=== PATIENT | female | born 1990 | race Caucasian/White ===

== ENCOUNTER 2021-06-04 02:32 | Emergency (ER) | payer OTHER, SELFPAY ==
[2021-06-04 02:33] VITALS: BP 121/79; PULSE 101; RESP 20; TEMP 36.7; O2SAT 97; BMI 28.5
[2021-06-04] MEDS: proMETHazine 25 MG/ML Syringe 12.5 MG IV (02:49)
--- NOTE | 2021-06-04 03:30 | EX.ED.DYSGE1 ---
HPI History of Present Illness Chief Complaint: General Illness Informant: patient Narrative Narrative: Patient presents with nausea vomiting diarrhea and concern for COVID. She has had some nausea vomiting diarrhea for the last approximately 24 hours. She has 2 of her 4 children at home that have COVID. She does have a slight headache. She has slight myalgias. But she has no cough dyspnea or sore throat. She has not been vaccinated. She also states that she has a history of common stomach problems with nausea vomiting diarrhea. She had some Zofran at home left over from when she was . She tried 1 of those and it did not help. She is not having abdominal pain. She has no dysuria. No flank pain. Nothing specifically makes her symptoms better. Trying to eat or drink does make the nausea worse. PFSH PFSH Medical History no medical history Home Medications ondansetron 4 mg PO Q8H PRN #10 tab 06/04/21 [Rx Last Taken Unknown] promethazine 25 mg PO Q6H PRN #14 tab 06/04/21 [Rx Last Taken Unknown] Allergy/AdvReac Type Severity Reaction Status Date / Time No Known Allergies Allergy Verified 06/04/21 02:35 Social History Smoking Status: Current every day smoker tobacco type: cigarettes ROS ROS ED Constitutional Constitutional ED: Denies chills, fever(s) or subjective Eyes Eyes: Denies blurry vision ENT ENT ED: Denies rhinorrhea or sore throat Cardiovascular Cardiovascular: Denies chest pain or palpitations Respiratory/Chest Respiratory/Chest: Denies cough, dyspnea, dyspnea on exertion or sputum Gastrointestinal Gastrointestinal: Reports diarrhea, nausea and vomiting Genitourinary Genitourinary ED: Denies dysuria or hematuria Musculoskeletal Musculoskeletal: Reports myalgias Integumentary Denies rash Neurologic Neurologic: Reports headache(s); Denies weakness Psychiatric Psychiatric: Denies depression Endocrine Endocrinology: Denies polydipsia or polyuria Allergic/Immunologic Allergic/Immunologic ED: Denies mouth swelling or urticaria EXAM Physical Exam Const Vital Signs: 06/04/21 02:33 Temperature 98.0 F Temperature Source Temporal Pulse Rate 101 H Respiratory Rate 20 H Blood Pressure 121/79 H Blood Pressure Mean 93 Pulse Ox 97 Oxygen Delivery Method Room Air Positive well nourished and well developed General Appearance ED: well developed and NAD; Negative for pallor HEENT Reports moist mucous membranes; Denies dry mucous membranes Negative for trauma or tenderness Mouth ED: No dry mucous membranes Mouth: No dry mucous membranes Eyes General Eye ED: Negative for pale conjunctiva or scleral icterus Neck no JVD Chest Wall inspection of chest normal Resp normal respiratory effort and clear to auscultation bilaterally Effort and Inspection: Negative for pain with movement Auscultation: Negative for rales, rhonchi or wheezes Cardio regular rate and regular rhythm; Negative for no murmurs GI normal to inspection, nondistended, normoactive bowel sounds, non-tender and non-distended Auscultation: normoactive bowel sounds Palpation: soft; Negative for tender, guarding or rebound tenderness present Back/Spine no CVA tenderness Extremity General Extremety ED: Negative for edema or tenderness General Extremity: Negative for edema Neuro Sensorium / Orientation: alert Psych mental status grossly normal Skin no rashes or lesions noted and no wounds General Skin Exam: Negative for jaundice or pallor MDM MDM MDM Narrative Medical decision making narrative: Patient already tried some Zofran at home. We gave her Phenergan here. Her dry heaves have stopped and she is feeling a bit better. Her COVID is positive. I did not do x-ray. She is not coughing, not short of breath, has clear lungs and is not hypoxic. I think we get her home with meds for nausea vomiting. We discussed reasons to return. Discharge Plan Triage Chief Complaint: General Illness ED Provider: Chucho Hoover Dx/Rx/DC Orders Clinical Impression: COVID-19, Nausea vomiting and diarrhea Instructions: Coronavirus Disease 2019 (COVID-19): Caring for Yourself or Others, ED Vomiting (Adult) Prescriptions: New ondansetron 4 mg tablet,disintegrating 4 mg PO Q8H PRN (Reason: nausea and vomiting) Qty: 10 RF: 0 promethazine 25 mg tablet 25 mg PO Q6H PRN (Reason: nausea and vomiting) Qty: 14 RF: 0 Primary Care Provider: Care Physician,No Primary Referrals: Paty Brantley DO [STAFF PHYSICIAN] - 10-14 Days if not better Care Physician,No Primary [Primary Care Provider] - Disposition Disposition: Home, Self Care
[2021-06-04 03:45] VITALS: BP 120/60; PULSE 87; RESP 18; O2SAT 96
== END 2021-06-04 03:46 | disposition home or self-care (01) ==
PROVIDERS: Emergency Provider Emergency Medicine; Visit Provider Emergency Medicine
DX: U07.1 COVID-19 (principal); F17.210 Nicotine dependence, cigarettes, uncomplicated
CPT/HCPCS: 87426; 96374; 99282

== ENCOUNTER 2021-10-21 18:31 | Emergency (ER) | payer OTHER, SELFPAY ==
[2021-10-21 18:32] VITALS: BP 123/92; PULSE 128; RESP 22; TEMP 36.8; O2SAT 93; BMI 28.0
--- NOTE | 2021-10-21 18:57 | EX.ED.DYSGE1 ---
HPI History of Present Illness Chief Complaint: Nausea/Vomiting Informant: patient Narrative Narrative: 30-year-old female states that last evening she developed nausea and by 030 0 hours she was experiencing vomiting. She tried to work but was unsuccessful. She states that she generally feels very poorly. She states the last time she felt like this she had COVID and that was several months ago. She denies any diarrhea or other URI symptoms. She is crying stating that she feels bad. PFSH PFSH Medical History no medical history no medical history Home Medications NK 10/21/21 [History Last Taken Unknown] promethazine 25 mg PO Q6H PRN PRN #20 tablet 10/21/21 [Rx Last Taken Unknown] Allergy/AdvReac Type Severity Reaction Status Date / Time No Known Allergies Allergy Verified 10/21/21 18:32 Surgical History no surgical history no surgical history Social History (Updated 10/21/21 @ 18:[address] Damion Matthews, DO) current gender identity: female Smoking Status: Current every day smoker tobacco type: cigarettes ROS ROS ED Constitutional Constitutional ED: Denies chills, fever(s) or weight loss Eyes Eyes: Denies change in vision or diplopia ENT ENT ED: Denies ear pain, rhinorrhea or sore throat Cardiovascular Cardiovascular: Denies chest pain, orthopnea, palpitations or racing heartbeat Respiratory/Chest Respiratory/Chest: Denies cough, dyspnea or orthopnea Gastrointestinal Gastrointestinal: Reports nausea and vomiting; Denies abdominal pain or diarrhea Genitourinary Genitourinary ED: Denies dysuria, hematuria or urinary frequency Musculoskeletal Musculoskeletal: Reports myalgias; Denies arthralgias Integumentary Denies abscess or rash Neurologic Neurologic: Denies headache(s) or weakness Psychiatric Psychiatric: Denies anxiety, depression, suicidal ideation or suicidal thoughts Endocrine Endocrinology: Denies polydipsia, polyphagia or polyuria Allergic/Immunologic Allergic/Immunologic ED: Denies mouth swelling, tongue swelling or urticaria EXAM Physical Exam Const Vital Signs: 10/21/21 18:32 Temperature 98.2 F Temperature Source Temporal Pulse Rate 128 H Respiratory Rate 22 H Blood Pressure 123/92 H Blood Pressure Mean 102 Pulse Ox 93 Oxygen Delivery Method Room Air Positive well nourished and well developed General Appearance ED: well developed HEENT Reports normocephalic, head/scalp atraumatic, TM's clear and moist mucous membranes Negative for trauma Tympanic Membrane ED: Yes TM's clear Eyes PERRL and EOMs intact bilaterally Neck no lymphadenopathy, supple and no JVD Resp normal respiratory effort and clear to auscultation bilaterally Cardio regular rate and no murmurs Rate: tachycardic GI normal to inspection, nondistended, normoactive bowel sounds and non-tender Palpation: soft Back/Spine no CVA tenderness and normal ROM Extremity normal to inspection General Extremety ED: Negative for edema General Extremity: Negative for edema Neuro oriented x3 and CN's II-XII intact bilaterally Sensorium / Orientation: alert Motor Exam: strength 5/5 throughout Psych Mood & Affect: tearful; Negative for depressed Skin no rashes or lesions noted and no wounds MDM MDM MDM Narrative Medical decision making narrative: Basic blood work was normal. Not . Lipase 133. COVID and influenza swabs are negative. Patient received Zofran and IV fluids. She is feeling better. I will write for Phenergan on her request. Return if worsening or concerns Lab Data Attestation: I reviewed the patient's lab results. Labs: Laboratory Results - last 24 hr 10/21/21 10/21/21 10/21/21 19:00 19:00 19:00 WBC 8.7 RBC 4.63 Hgb 12.8 Hct 41.8 MCV 90.3 MCH 27.6 MCHC 30.6 L RDW Std Deviation 42.6 RDW Coeff of [place] 12.9 Plt Count 267 MPV 10.9 Immature Gran % (Auto) 0.300 Neut % (Auto) 78.5 H Lymph % (Auto) 16.1 L [place] % (Auto) 3.9 Eos % (Auto) 0.9 Baso % (Auto) 0.3 Absolute Neuts (auto) 6.8 Absolute Lymphs (auto) 1.40 Nucleated RBC % 0 Sodium 139 Potassium 3.6 Chloride 110 H Carbon Dioxide 22.0 Anion Gap 7 BUN 8 Creatinine 0.71 Estim Creat Clear Calc 97.58 Est GFR (MDRD) Af Amer 125 Est GFR (MDRD) Non-Af 104 BUN/Creatinine Ratio 11.3 Glucose 97 Calcium 8.8 Total Bilirubin 0.40 AST 18 ALT 25 Alkaline Phosphatase 76 Total Protein 7.9 Albumin 4.1 Globulin 3.8 Albumin/Globulin Ratio 1.1 Lipase 133 Serum , Qual NEGATIVE Discharge Plan Triage Chief Complaint: Nausea/Vomiting ED Provider: Damion Matthews Dx/Rx/DC Orders Clinical Impression: Vomiting Instructions: ED Vomiting (Adult) Prescriptions: New promethazine [promethazine] 25 MG tablet 25 mg PO Q6H PRN PRN (Reason: Nausea) Qty: 20 RF: 0 No Action NK RF: 0 Primary Care Provider: Care Physician,No Primary Referrals: Kateryna Borrego MD [STAFF PHYSICIAN] - 1-2 Days if not improving Care Physician,No Primary [Primary Care Provider] - Disposition Disposition: Home, Self Care
[2021-10-21] MEDS: 0.9% Normal Saline 1,000 ML 1000 ML IV (19:05)
[2021-10-21] MEDS: Ondansetron 4 MG/2 ML Vial IV (19:05)
[2021-10-21 19:17] LABS: Absolute Neutrophil Count 6.8 X10^3/uL (2.0-7.7); Basophil# 0.03 X10^3/uL; Basophil% 0.3 % (0-1); Eosinophil# 0.08 X10^3/uL; Eosinophils% 0.9 % (0-5); Hematocrit 41.8 % (37-47); Hemoglobin 12.8 g/dL (12.0-15.0); Lymphocyte % 16.1 % (19-41); Mean Corp Hgb Conc 30.6 g/dL (32-36); Mean Corpuscular Hgb 27.6 pg (27.0-32.0); Mean Corpuscular Volume 90.3 fL (81-99); Mean Platelet Vol. 10.9 fl (6.2-12.0); Monocyte# 0.34 X10^3/uL; Monocyte% 3.9 % (0-10); NRBC Flagged by Analyzer 0 % (0-5); Neutrophil # 6.81 X10^3/uL (2.7-7.7); Neutrophil % 78.5 % (47-70); Platelet Count 267 K/mm3 (150-450); RBC Distribution Width CV 12.9 % (11.6-14.6); RBC Distribution Width SD 42.6 fl (35.1-43.9); Red Blood Count 4.63 M/mm3 (4.2-5.4); White Blood Count 8.7 K/mm3 (4.4-11.0)
[2021-10-21 19:32] LABS: Internal QC Validated? YES +Cl - CLEAR BKGD; Pregnancy, Serum, hCG Quali. NEGATIVE Negative
[2021-10-21 20:04] LABS: ALB/GLOB Ratio 1.1 RATIO (0.9-2.4); AST(SGOT) 18 U/L (15-37); Alanine Aminotransfer ALT/SGPT 25 U/L (13-56); Albumin, Serum 4.1 g/dL (3.2-5.0); Alkaline Phosphatase 76 U/L (45-117); Anion Gap 7 (5-15); BUN 8 mg/dL (7-18); BUN/Creat Ratio 11.3 RATIO (10-20); Calcium,Total 8.8 mg/dL (8.5-10.1); Chloride 110 mmol/L (98-107); Creatinine, Serum 0.71 mg/dL (0.55-1.02); EST Glomerular Filtration Rate 104 mL/min (>60); Est Glom Filt Rate - Afr Amer 125 mL/min (>60); Estimated Creatinine Clearance 97.58 ml/min; Globulin 3.8 g/dL (2.2-4.2); Glucose 97 mg/dL (74-106); Lipase 133 U/L (73-393); Potassium 3.6 mmol/L (3.5-5.1); Protein, Total 7.9 g/dL (6.4-8.2); Sodium Level 139 mmol/L (136-145)
== END 2021-10-21 21:09 | disposition home or self-care (01) ==
PROVIDERS: Emergency Provider Emergency Medicine; Visit Provider Emergency Medicine
DX: R11.2 Nausea with vomiting, unspecified (principal); Z20.822 Contact with and (suspected) exposure to COVID-19; F17.210 Nicotine dependence, cigarettes, uncomplicated
CPT/HCPCS: 80053; 83690; 84703; 85025; 87428; 96361; 96374; 99282; J7030; A4216; J2405

== ENCOUNTER 2022-05-17 06:37 | Emergency (ER) | payer OTHER, SELFPAY ==
[2022-05-17 06:39] VITALS: BP 136/80; PULSE 118; RESP 20; TEMP 36.4; O2SAT 98; BMI 24.7
--- NOTE | 2022-05-17 07:13 | EDS_ITS ---
HPI History of Present Illness Chief Complaint: Nausea/Vomiting Informant: patient Onset/Context/Timing Onset: Days (2) Context: Gradual Onset Timing: Continuous Quality: Nausea Location: Abdominal Worsened by: Food Relieved by: Nothing Narrative Narrative: Patient presents with nausea and vomiting that has been constant for the past 2 days. Patient states she is unable to keep anything down. Patient denies any hematemesis or coffee-ground emesis. Patient admits to some diarrhea. Patient denies any melena or hematochezia. Patient states her nausea and vomiting is worse whenever she tries to eat anything. Patient denies any abdominal pain. Patient denies any urinary complaints. Patient states several family members have been positive for influenza recently. PFSH PFSH Medical History no medical history no medical history Home Medications promethazine 25 mg rectal suppository (Promethegan) 25 mg RECTAL Q6H PRN PRN Nausea ##6 05/17/22 [Rx Last Taken Unknown] Allergy/AdvReac Type Severity Reaction Status Date / Time No Known Allergies Allergy Verified 05/17/22 06:38 Surgical History no surgical history no surgical history Social History Smoking Status: Current every day smoker tobacco type: cigarettes ROS ROS ED Constitutional Constitutional ED: Denies chills or fever(s) Eyes Eyes: Denies blurry vision or change in vision ENT ENT ED: Reports sore throat; Denies rhinorrhea Cardiovascular Cardiovascular: Denies chest pain or palpitations Respiratory/Chest Respiratory/Chest: Reports cough; Denies dyspnea Gastrointestinal Gastrointestinal: Reports diarrhea, nausea and vomiting Genitourinary Genitourinary ED: Denies dysuria or hematuria Musculoskeletal Musculoskeletal: Denies back pain or neck pain Integumentary Denies abscess or rash Neurologic Neurologic: Reports headache(s); Denies weakness Allergic/Immunologic Allergic/Immunologic ED: Denies mouth swelling or urticaria EXAM Physical Exam Const Vital Signs: 05/17/22 06:39 Temperature 97.6 F L Temperature Source Temporal Pulse Rate 118 H Respiratory Rate 20 H Blood Pressure 136/80 H Blood Pressure Mean 98 Pulse Ox 98 Oxygen Delivery Method Room Air Positive well nourished and well developed General Appearance ED: well developed and NAD HEENT Reports moist mucous membranes Neck supple and no JVD Resp normal respiratory effort and clear to auscultation bilaterally Cardio regular rate, regular rhythm and no murmurs GI normal to inspection, nondistended, normoactive bowel sounds and non-tender Palpation: soft Extremity normal to inspection General Extremety ED: Negative for edema or tenderness General Extremity: Negative for edema Neuro oriented x3, CN's II-XII intact bilaterally and no sensory deficits noted Sensorium / Orientation: alert Motor Exam: strength 5/5 throughout Psych mental status grossly normal Skin no rashes or lesions noted MDM MDM MDM Narrative Medical decision making narrative: Patient was given IV fluids and Zofran. CBC was within normal limits. Comprehensive metabolic profile was within normal limits. Lipase was normal. Serum hCG was negative. COVID-19 rapid antigen was obtained and was negative. Influenza A and influenza B rapid antigens were obtained and were negative. Urinalysis shows leukocyte esterases of 100. There were 0-5 white blood cells and 5-10 epithelial cells. Patient was given a prescription for Phenergan suppositories. Patient was instructed to start with small amounts of liquids and advance her diet as tolerated. Patient was instructed to follow-up with a primary care physician in 5 to 7 days. Patient understood and was agreeable with the plan. All questions were answered. Lab Data Attestation: I reviewed the patient's lab results. Labs: Laboratory Results - last 24 hr 05/17/22 05/17/22 05/17/22 07:27 07:27 07:27 WBC 7.8 RBC 4.27 Hgb 12.5 Hct 38.5 MCV 90.2 MCH 29.3 MCHC 32.5 RDW Std Deviation 42.8 RDW Coeff of [place] 12.9 Plt Count 219 MPV 10.6 Immature Gran % (Auto) 0.400 Neut % (Auto) 42.8 L Lymph % (Auto) 48.8 H [place] % (Auto) 5.1 Eos % (Auto) 2.6 Baso % (Auto) 0.3 Absolute Neuts (auto) 3.3 Absolute Lymphs (auto) 3.79 Nucleated RBC % 0 Sodium 141 Potassium 3.8 Chloride 111 H Carbon Dioxide 25.0 Anion Gap 5 BUN 10 Creatinine 0.75 Estim Creat Clear Calc 91.55 Est GFR (MDRD) Af Amer 117 Est GFR (MDRD) Non-Af 97 BUN/Creatinine Ratio 13.4 Glucose 109 H Calcium 8.6 Total Bilirubin 0.30 AST 14 L ALT 21 Alkaline Phosphatase 58 Total Protein 7.3 Albumin 3.7 Globulin 3.6 Albumin/Globulin Ratio 1.0 Lipase 123 HCG, Quant < 1 Urine Color Urine Clarity Urine pH Ur Specific [place] Urine Protein Urine Glucose (UA) Urine Ketones Urine Occult Blood Urine Nitrite Urine Bilirubin Urine Urobilinogen Ur Leukocyte Esterase Urine RBC Urine WBC Ur Squamous Epith Cells Urine Bacteria Urine Mucus 05/17/22 07:35 WBC RBC Hgb Hct MCV MCH MCHC RDW Std Deviation RDW Coeff of [place] Plt Count MPV Immature Gran % (Auto) Neut % (Auto) Lymph % (Auto) [place] % (Auto) Eos % (Auto) Baso % (Auto) Absolute Neuts (auto) Absolute Lymphs (auto) Nucleated RBC % Sodium Potassium Chloride Carbon Dioxide Anion Gap BUN Creatinine Estim Creat Clear Calc Est GFR (MDRD) Af Amer Est GFR (MDRD) Non-Af BUN/Creatinine Ratio Glucose Calcium Total Bilirubin AST ALT Alkaline Phosphatase Total Protein Albumin Globulin Albumin/Globulin Ratio Lipase HCG, Quant Urine Color Yellow Urine Clarity Clear Urine pH 6.0 Ur Specific [place] 1.020 Urine Protein 15 H Urine Glucose (UA) Normal Urine Ketones Negative Urine Occult Blood Negative Urine Nitrite Negative Urine Bilirubin Negative Urine Urobilinogen Normal Ur Leukocyte Esterase 100 H Urine RBC 0 SEEN Urine WBC 0-5 SEEN Ur Squamous Epith Cells 5-10 SEEN Urine Bacteria 1+ Urine Mucus 0 SEEN Discharge Plan Triage Chief Complaint: Nausea/Vomiting ED Provider: Sacha Regalado Dx/Rx/DC Orders Clinical Impression: Nausea vomiting and diarrhea, Tobacco use Instructions: ED Gastroenteritis, Viral (Adult), ED Vomiting and Diarrhea ... Prescriptions: New promethazine [Promethegan] 25 mg suppository 25 mg RECTAL Q6H PRN PRN (Reason: Nausea) Qty: 6 0RF Primary Care Provider: Care Physician,No Primary Referrals: Geronimo Malave MD [Med Staff - Active Staff] - 5-7 Days Care Physician,No Primary [Primary Care Provider] - Disposition Disposition: Home, Self Care
[2022-05-17] MEDS: Ondansetron 4 MG/2 ML Vial IV (07:35)
[2022-05-17] MEDS: 0.9% Normal Saline 1,000 ML 1000 ML IV (07:35)
[2022-05-17 07:36] LABS: Absolute Lymphocyte Count 3.79 X10^3/uL (0.83-4.51); Absolute Neutrophil Count 3.3 X10^3/uL (2.0-7.7); Basophil# 0.02 X10^3/uL; Basophil% 0.3 % (0-1); Eosinophils% 2.6 % (0-5); Hematocrit 38.5 % (37-47); Hemoglobin 12.5 g/dL (12.0-15.0); Lymphocyte # 3.79 X10^3/ul (0.83-4.51); Lymphocyte % 48.8 % (19-41); Mean Corp Hgb Conc 32.5 g/dL (32-36); Mean Corpuscular Hgb 29.3 pg (27.0-32.0); Mean Corpuscular Volume 90.2 fL (81-99); Mean Platelet Vol. 10.6 fl (6.2-12.0); Monocyte% 5.1 % (0-10); NRBC Flagged by Analyzer 0 % (0-5); Neutrophil # 3.33 X10^3/uL (2.7-7.7); Neutrophil % 42.8 % (47-70); Platelet Count 219 K/mm3 (150-450); RBC Distribution Width CV 12.9 % (11.6-14.6); RBC Distribution Width SD 42.8 fl (35.1-43.9); Red Blood Count 4.27 M/mm3 (4.2-5.4); White Blood Count 7.8 K/mm3 (4.4-11.0)
[2022-05-17 07:41] LABS: Mucous, Urine 0 SEEN /hpf (<or=2+); Red Blood Cells-Urine 0 SEEN /hpf (0-5)
[2022-05-17 07:55] LABS: AST(SGOT) 14 U/L (15-37); Alanine Aminotransfer ALT/SGPT 21 U/L (13-56); Albumin, Serum 3.7 g/dL (3.2-5.0); Alkaline Phosphatase 58 U/L (45-117); Anion Gap 5 (5-15); BUN 10 mg/dL (7-18); BUN/Creat Ratio 13.4 RATIO (10-20); Calcium,Total 8.6 mg/dL (8.5-10.1); Chloride 111 mmol/L (98-107); Creatinine, Serum 0.75 mg/dL (0.55-1.02); EST Glomerular Filtration Rate 97 mL/min (>60); Est Glom Filt Rate - Afr Amer 117 mL/min (>60); Estimated Creatinine Clearance 91.55 ml/min; Globulin 3.6 g/dL (2.2-4.2); Glucose 109 mg/dL (74-106); Lipase 123 U/L (73-393); Potassium 3.8 mmol/L (3.5-5.1); Protein, Total 7.3 g/dL (6.4-8.2); Sodium Level 141 mmol/L (136-145)
[2022-05-17 07:59] LABS: Color, Urine Yellow (Yellow); Glucose, Dipstick Normal (Normal); Ketone-Dipstick Negative (Negative); Leukocyte Esterase-Dipstick 100 /ul (Negative); Nitrite-Dipstick Negative (Negative); Occult Blood-Urine Negative /ul (Negative); Protein-Dipstick 15 mg/dl (Negative); Urine Bilirubin Dipstick Negative (Negative); Urine Clarity Clear (Clear); Urine Urobilinogen Normal (Normal)
[2022-05-17 08:08] LABS: hCG Titer Quant., Serum < 1 mIU/mL (1-3)
[2022-05-17 08:26] LABS: Bacteria 1+ /hpf (None Seen); Squamous Epithelial Cells - UA 5-10 SEEN /hpf (5-10); White Blood Cells 0-5 SEEN /hpf (0-5)
== END 2022-05-17 08:39 | disposition home or self-care (01) ==
PROVIDERS: Emergency Provider Emergency Medicine; Visit Provider Emergency Medicine
DX: R11.2 Nausea with vomiting, unspecified (principal); F17.210 Nicotine dependence, cigarettes, uncomplicated; R19.7 Diarrhea, unspecified; R51.9 Headache, unspecified; J02.9 Acute pharyngitis, unspecified; Z20.822 Contact with and (suspected) exposure to COVID-19
CPT/HCPCS: 80053; 81001; 83690; 84702; 85025; 87428; 96361; 96374; 99282; J7030; A4216; J2405

== ENCOUNTER → 2022-11-24 | Outpatient (CLI) | payer OTHER, SELFPAY ==
--- NOTE | 2022-11-24 | FLU_PTH ---
PATIENT: JACKSON RAMEY LOC: [facility] U#:[id number] AGE/SX: 32/F ROOM: RE11/24/[address]: Dr. Padmaja Jurado MD : 1990 BED: DIS: 11/24/2022 SPEC #: [id number] RECD: 11/24/22 16:58 STATUS: RAVI REVivian #: [id number] ZACHARY: 11/24/22 00:[address]: Padmaja Jurado DEPT: CYTOLOGY RECD BY: Nathan Barcenas ENTERED: 11/25/22 08:31 SP TYPE: Fluid OTHR DR: No Primary Care Phys Tissues: A - Thyroid gland, NOS B - Thyroid gland, NOS Procedures: Special Stain Group II Surgery Specimen Level IV Cytospin Fluid HEADER OPERATION: Fine needle aspiration, right thyroid PRE-OP DIAGNOSIS: Abnormal thyroid ultrasound TISSUE SUBMITTED: A. FNA right thyroid fluid, B. FNA right thyroid slides DIAGNOSIS CYTOLOGY A. FNA right thyroid fluid (cytospin and cell block): Negative for malignant cells. See comment. B. FNA right thyroid (smears): Benign follicular/colloid nodule. [place] category II Adequate for evaluation. SJ: 11/26/2022 COMMENT A. The specimen consists of a few clusters of benign follicular cells and numerous macrophages. The findings may represent cystic changes in the lesion. Correlation with clinical, radiologic findings and appropriate follow up are necessary. CYTOLOGY STUDY Slides are reviewed. CYTOLOGY GROSS A. Received is 30 ml of red cloudy fluid labeled with the patient's name and and designated per the requisition as FNA right thyroid. Submitted for cytology preparation including cell block. B. Received are 4 smears labeled with the patient's name and designated per the requisition as FNA right thyroid. Submitted for staining. /CC: 11/25/22 TC: 5 CPT: 71572, 69290, 13606
== END | disposition home or self-care (01) ==
PROVIDERS: Referring Provider Surgery; Visit Provider Surgery
DX: R94.6 Abnormal results of thyroid function studies (principal)
CPT/HCPCS: 88108; 88305; 88313

== ENCOUNTER 2023-01-06 10:05 | Emergency (ER) | payer OTHER, SELFPAY ==
[2023-01-06 10:06] VITALS: BP 108/69; PULSE 108; RESP 18; TEMP 36.1; O2SAT 100; BMI 24.4
--- NOTE | 2023-01-06 10:21 | ED.VIS.GI ---
HPI HPI - GI History of Present Illness Chief Complaint: Nausea/Vomiting Informant: patient Nausea/Vomiting/Emesis GI Symptom: Positive for Nausea and Vomiting Onset: Today and Yesterday Severity: Moderate Diarrhea/Melena/Hematochezia GI Symptom: Negative for Diarrhea, Melena or Hematochezia Associated Symptoms Associated Symptoms: Negative for Dysuria, Frequency, Hematuria or Urgency Narrative Narrative: 32-year-old female without any significant past medical history. Her 2-year-old started with nausea vomiting diarrhea yesterday and she started with nausea and vomiting last night around 11 PM. She denies any diarrhea. No melena. No hematemesis. No fever. Denies any abdominal pain. Prior similar symptoms: Yes Recent Illness/Hospitalization: No PFSH PFSH Medical History no medical history no medical history Home Medications promethazine 25 mg rectal suppository (Promethegan) 25 mg RECTAL Q6H PRN PRN Nausea ##6 05/17/22 [Rx Last Taken Unknown] ondansetron 4 mg disintegrating tablet 4 mg PO Q6H PRN nausea and vomiting #10 tabs 01/06/23 [Rx Last Taken Unknown] Allergy/AdvReac Type Severity Reaction Status Date / Time No Known Allergies Allergy Verified 01/06/23 10:07 Surgical History no surgical history no surgical history Social History Smoking Status: Current every day smoker tobacco type: cigarettes ROS ROS ED ROS Narrative Nausea and vomiting today. No diarrhea. Review of Systems ROS Unobtainable: Denies due to encephalopathy Constitutional Constitutional ED: Denies chills or fever(s) ENT ENT ED: Denies ear pain Cardiovascular Cardiovascular: Denies chest pain Respiratory/Chest Respiratory/Chest: Denies cough or dyspnea Gastrointestinal Gastrointestinal: Reports nausea and vomiting; Denies abdominal pain, constipation, diarrhea or melena Genitourinary Genitourinary ED: Denies dysuria or hematuria Musculoskeletal Musculoskeletal: Denies arthralgias Integumentary Denies abscess Neurologic Neurologic: Denies headache(s) Psychiatric Psychiatric: Denies anxiety Endocrine Endocrinology: Denies polydipsia Hematologic/Lymphatic Hematologic/Lymphatic: Denies easy bleeding Allergic/Immunologic Allergic/Immunologic ED: Denies mouth swelling EXAM Physical Exam Narrative Exam Narrative: 32-year-old no acute distress. Vital signs stable afebrile. H EENT exam mildly dry mucous membranes. Posterior pharynx unremarkable. Neck nontender. No lymphadenopathy. Lungs clear to auscultation bilaterally. Heart tachycardic rate about 110 no murmur. Chest wall nontender. Abdomen soft nontender. Nondistended. Normal bowel sounds. No peritoneal signs. No right upper or lower quadrant tenderness. No hernia or mass. No obstruction. Moving all 4 extremities. Calves are nontender. Neurologically awake and alert. No focal motor deficits. Skin unremarkable. Back nontender. Const Vital Signs: 01/06/23 10:06 Temperature 96.9 F L Temperature Source Temporal Pulse Rate 108 H Respiratory Rate 18 Blood Pressure 108/69 Blood Pressure Mean 82 Pulse Ox 100 Oxygen Delivery Method Room Air Positive well nourished and well developed; Negative for obese, cachectic, contractures or unkempt General Appearance ED: well developed and NAD; Negative for unkempt, cachectic or contractures Nutritional Appearance: Negative for cachectic or obese HEENT Reports dry mucous membranes; Denies moist mucous membranes normocephalic and atraumatic; Negative for trauma or tenderness Mouth ED: Yes dry mucous membranes Mouth: dry mucous membranes Eyes PERRL and EOMs intact bilaterally General Eye ED: Negative for pale conjunctiva or scleral icterus Neck no lymphadenopathy, supple and no JVD General: Negative for tenderness Carotids: Negative for other Lymph Lymphatic: Negative for other Resp normal respiratory effort and clear to auscultation bilaterally Effort and Inspection: Negative for respiratory distress Auscultation: Negative for rales, rhonchi or wheezes Cardio regular rhythm, S1 normal heart sound, S2 normal heart sound and no murmurs; Negative for regular rate Rate: tachycardic GI non-tender, non-distended and no masses Inspection: Negative for abdominal distention Auscultation: normoactive bowel sounds Palpation: soft; Negative for tender or guarding Back/Spine no CVA tenderness General Back: Negative for CVA tenderness Cervical Spine: Negative for cervical spine tenderness Thoracic Spine / Upper Back: Negative for thoracic spinal tenderness Lumbar Spine / Lower Back: Negative for lumbar spinal tenderness Coccyx: Negative for other Extremity full ROM General Extremety ED: Negative for edema or tenderness General Extremity: Negative for edema Neuro CN's II-XII intact bilaterally and moves all extremities Sensorium / Orientation: alert, oriented to person, oriented to place and oriented to time; Negative for orientation impaired, confused, lethargic or stuporous Motor Exam: strength 5/5 throughout Psych mental status grossly normal and thought process normal Appearance: Negative for unkempt Attitude: No agitated Mood & Affect: Negative for depressed, anxious or tearful Skin no wounds General Skin Exam: Negative for jaundice Lesions: no lesions Rashes: no rashes Trauma: Negative for abrasion Nails: Negative for discolored MDM MDM MDM Narrative Medical decision making narrative: 32-year-old female with nausea vomiting. Son has nausea vomiting diarrhea. I suspect this is a viral gastroenteritis. Abdomen is completely nontender and benign. She will be treated with IV fluids. IV Zofran. P.o. fluid challenge. If she is normal she be discharged home with Zofran. Clinically she is mildly dehydrated. Repeat exam at 11:00 patient is doing well. Still nauseated will be given a second dose of IV Zofran. She has had about half of her liter bag so far. Repeat exam patient clinically looks well at 12:30 PM. Nausea is resolved. She feels much better. She was able to tolerate p.o. fluids. She will be discharged home. Treated as a viral gastroenteritis. Fluids. Rest. Zofran as needed. She is comfortable with the plan. Discharge Plan Triage Chief Complaint: Nausea/Vomiting ED Provider: Augustus Sahni Dx/Rx/DC Orders Clinical Impression: Acute dehydration, Viral syndrome, Nausea & vomiting Instructions: ED Dehydration (Adult), ED Viral Syndrome (Adult) Prescriptions: New ondansetron 4 mg tablet,disintegrating 4 mg PO Q6H PRN (Reason: nausea and vomiting) Qty: 10 0RF No Action promethazine [Promethegan] 25 mg suppository 25 mg RECTAL Q6H PRN PRN (Reason: Nausea) Qty: 6 0RF Primary Care Provider: Care Physician,No Primary Referrals: Juan Aguiar MD [Med Staff - Flight [employer] Operator] - As Needed Care Physician,No Primary [Primary Care Provider] - Activity Restrictions/Additional Instructions: Plenty of fluids and rest. Increase diet slowly as tolerated Zofran as needed for nausea. You may let it dissolve in your tongue or swallow it. Follow-up with your doctor if not improving or return if feeling worse or unable to keep fluids down. Disposition Disposition: Home, Self Care
[2023-01-06] MEDS: Ondansetron 4 MG/2 ML Vial IV ×2 (10:27→11:11)
[2023-01-06] MEDS: 0.9% Normal Saline 1,000 ML 1000 ML IV (10:27)
--- NOTE | 2023-01-06 11:05 | CM.ED ---
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 Patient was lying on hospital bed and agreeable to speak with SW. SW inquired about patient's insurance and current PCP. Patient verified insurance and reports havinga PCP at [facility] but is unable to recall their name. Patient declined a list of local PCPs in network with patient's insurance and accepting new patients. Patient voiced no other needs at this time. SW remains available if needs arise. Masha Xiong MECHANICAL DRAFTER, JEANINE
== END 2023-01-06 12:36 | disposition home or self-care (01) ==
LOC: ED 10:49
PROVIDERS: Emergency Provider Emergency Medicine; Visit Provider Emergency Medicine
DX: E86.0 Dehydration (principal); B34.9 Viral infection, unspecified; R11.2 Nausea with vomiting, unspecified; F17.210 Nicotine dependence, cigarettes, uncomplicated
CPT/HCPCS: 96361; 96374; 96376; 99282; J7030; A4216; J2405

== ENCOUNTER 2023-01-21 17:25 | Emergency (ER) | payer OTHER, SELFPAY ==
[2023-01-21 17:26] VITALS: BP 113/71; PULSE 83; RESP 17; TEMP 36.9; O2SAT 100; BMI 24.1
[2023-01-21 18:21] LABS: Absolute Lymphocyte Count 2.43 X10^3/uL (0.83-4.51); Absolute Neutrophil Count 7.9 X10^3/uL (2.0-7.7); Basophil# 0.03 X10^3/uL; Basophil% 0.3 % (0-1); Eosinophil# 0.02 X10^3/uL; Eosinophils% 0.2 % (0-5); Hematocrit 42.6 % (37-47); Hemoglobin 13.4 g/dL (12.0-15.0); Lymphocyte # 2.43 X10^3/ul (0.83-4.51); Lymphocyte % 22.2 % (19-41); Mean Corp Hgb Conc 31.5 g/dL (32-36); Mean Corpuscular Hgb 28.6 pg (27.0-32.0); Mean Corpuscular Volume 90.8 fL (81-99); Mean Platelet Vol. 10.6 fl (6.2-12.0); Monocyte# 0.51 X10^3/uL; Monocyte% 4.7 % (0-10); NRBC Flagged by Analyzer 0 % (0-5); Neutrophil # 7.88 X10^3/uL (2.7-7.7); Neutrophil % 72.1 % (47-70); Platelet Count 271 K/mm3 (150-450); RBC Distribution Width CV 12.7 % (11.6-14.6); RBC Distribution Width SD 41.9 fl (35.1-43.9); Red Blood Count 4.69 M/mm3 (4.2-5.4); White Blood Count 10.9 K/mm3 (4.4-11.0)
[2023-01-21 18:25] LABS: Internal QC Validated? YES +Cl - CLEAR BKGD; Pregnancy, Serum, hCG Quali. NEGATIVE Negative
[2023-01-21 18:31] LABS: Anion Gap 7 (5-15); BUN 7 mg/dL (7-18); BUN/Creat Ratio 8.5 RATIO (10-20); Calcium,Total 9.1 mg/dL (8.5-10.1); Chloride 108 mmol/L (98-107); Creatinine, Serum 0.82 mg/dL (0.55-1.02); EST Glomerular Filtration Rate 87 mL/min (>60); Est Glom Filt Rate - Afr Amer 105 mL/min (>60); Estimated Creatinine Clearance 82.98 ml/min; Glucose 100 mg/dL (74-106); Potassium 3.6 mmol/L (3.5-5.1); Sodium Level 138 mmol/L (136-145)
[2023-01-21 18:57] LABS: Bacteria 0 SEEN /hpf (None Seen)
[2023-01-21 18:58] LABS: Color, Urine Yellow (Yellow); Glucose, Dipstick Normal (Normal); Ketone-Dipstick 50 mg/dl (Negative); Leukocyte Esterase-Dipstick 25 /ul (Negative); Nitrite-Dipstick Negative (Negative); Occult Blood-Urine 10 /ul (Negative); Protein-Dipstick 30 mg/dl (Negative); Urine Clarity Clear (Clear); Urine Urobilinogen 1 mg/dl (Normal)
[2023-01-21 19:02] LABS: Urine Bilirubin Dipstick 1 mg/dL (Negative)
[2023-01-21 19:25] LABS: Mucous, Urine 3+ /hpf (<or=2+); Red Blood Cells-Urine 0-5 SEEN /hpf (0-5); Squamous Epithelial Cells - UA 0-5 SEEN /hpf (5-10); White Blood Cells 0-5 SEEN /hpf (0-5)
--- NOTE | 2023-01-21 19:38 | ED.VIS.GI ---
HPI HPI - GI History of Present Illness Chief Complaint: Abd Pain Informant: patient Abdominal Pain/Flank Pain Onset: Days Context: Gradual Onset Timing: Continuous Quality: Dull Location: Epigastric, RUQ and LUQ Worsened by: Nothing Relieved by: Nothing Nausea/Vomiting/Emesis GI Symptom: Positive for Nausea and Vomiting Quality: Positive for Nonbilious; Negative for Blood streaks, Coffee ground or Hematemesis Diarrhea/Melena/Hematochezia GI Symptom: Positive for Diarrhea; Negative for Melena or Hematochezia Associated Symptoms Associated Symptoms: Negative for Dysuria, Frequency or Hematuria Narrative Narrative: Patient presents with nausea and vomiting and diarrhea for the past few days. Patient states she has been unable to keep anything down. Patient denies any hematemesis or coffee-ground emesis. Patient denies any melena or hematochezia. Patient states her diarrhea is watery. Patient admits to some upper abdominal pain. Patient describes it as dull. Patient states it is worse with vomiting. Patient states nothing makes it better. Patient states she saw her primary care physician earlier today who prescribed her Zofran. Patient states this has not been helping. PFSH PFSH Medical History no medical history no medical history Home Medications ondansetron 4 mg disintegrating tablet 4 mg PO Q6H PRN nausea and vomiting #10 tabs 01/06/23 [Rx Last Taken Unknown] promethazine 25 mg rectal suppository (Promethegan) 25 mg RECTAL Q6H PRN PRN Nausea ##6 01/21/23 [Rx Last Taken Unknown] Allergy/AdvReac Type Severity Reaction Status Date / Time No Known Allergies Allergy Verified 01/21/23 17:26 Surgical History (Updated 01/21/23 @ 19:[address] Sacha Regalado DO) History of thyroid surgery Social History Smoking Status: Current every day smoker tobacco type: cigarettes ROS ROS ED Constitutional Constitutional ED: Reports chills, fever(s) and subjective Eyes Eyes: Denies blurry vision or change in vision ENT ENT ED: Denies rhinorrhea or sore throat Cardiovascular Cardiovascular: Denies chest pain or palpitations Respiratory/Chest Respiratory/Chest: Reports dyspnea; Denies cough Gastrointestinal Gastrointestinal: Reports abdominal pain, diarrhea, nausea and vomiting Genitourinary Genitourinary ED: Denies dysuria or hematuria Musculoskeletal Musculoskeletal: Reports back pain; Denies neck pain Integumentary Denies abscess or rash Neurologic Neurologic: Reports headache(s); Denies weakness Allergic/Immunologic Allergic/Immunologic ED: Denies mouth swelling or urticaria EXAM Physical Exam Const Vital Signs: 01/21/23 17:26 01/21/23 20:00 Temperature 98.4 F Temperature Source Temporal Pulse Rate 83 Respiratory Rate 17 Blood Pressure 113/71 119/68 Blood Pressure Mean 85 84 Pulse Ox 100 97 Oxygen Delivery Method Room Air Positive well nourished and well developed General Appearance ED: well developed and NAD HEENT Reports moist mucous membranes Neck supple and no JVD Resp normal respiratory effort and clear to auscultation bilaterally Cardio regular rate, regular rhythm and no murmurs GI normal to inspection, nondistended, normoactive bowel sounds Palpation: soft and tender epigastric, LUQ and RUQ; Negative for guarding or rebound tenderness present Extremity normal to inspection General Extremety ED: Negative for edema or tenderness General Extremity: Negative for edema Neuro oriented x3, CN's II-XII intact bilaterally and no sensory deficits noted Sensorium / Orientation: alert Motor Exam: strength 5/5 throughout Psych mental status grossly normal Skin no rashes or lesions noted MDM MDM MDM Narrative Medical decision making narrative: Differential diagnosis includes gastroenteritis, pancreatitis, gastroesophageal reflux disease, gastric ulcer, duodenal ulcer, bowel obstruction, perforation, and ectopic . CBC will be obtained to assess for leukocytosis and anemia. Basic metabolic profile will be obtained to assess for electrolyte abnormality and renal function. Liver profile will be obtained to assess for hepatic function. Lipase will be obtained to assess for pancreatitis. Serum hCG will be obtained to assess for . Urinalysis will be obtained to assess for urinary tract infection. Lab Data Attestation: I reviewed the patient's lab results. Lab results narrative: CBC was reviewed and was within normal limits. Basic metabolic profile was reviewed and was within normal limits. Serum hCG was obtained and was negative. Urinalysis was reviewed. There is no evidence of urinary tract infection or hematuria Labs: Laboratory Results - last 24 hr 01/21/23 01/21/23 18:10 18:50 WBC 10.9 RBC 4.69 Hgb 13.4 Hct 42.6 MCV 90.8 MCH 28.6 MCHC 31.5 L RDW Std Deviation 41.9 RDW Coeff of Garfield 12.7 Plt Count 271 MPV 10.6 Immature Gran % (Auto) 0.500 Neut % (Auto) 72.1 H Lymph % (Auto) 22.2 Carlton % (Auto) 4.7 Eos % (Auto) 0.2 Baso % (Auto) 0.3 Absolute Neuts (auto) 7.9 H Absolute Lymphs (auto) 2.43 Nucleated RBC % 0 Sodium 138 Potassium 3.6 Chloride 108 H Carbon Dioxide 23.0 Anion Gap 7 BUN 7 Creatinine 0.82 Estim Creat Clear Calc 82.98 Est GFR (MDRD) Af Amer 105 Est GFR (MDRD) Non-Af 87 BUN/Creatinine Ratio 8.5 L Glucose 100 Calcium 9.1 Total Bilirubin 0.60 Direct Bilirubin 0.17 AST 22 ALT 37 Alkaline Phosphatase 69 Total Protein 7.9 Albumin 4.2 Globulin 3.7 Lipase 20 Serum , Qual NEGATIVE Urine Color Yellow Urine Clarity Clear Urine pH 5.0 Ur Specific Wilson 1.030 Urine Protein 30 H Urine Glucose (UA) Normal Urine Ketones 50 H Urine Occult Blood 10 H Urine Nitrite Negative Urine Bilirubin 1 H Urine Urobilinogen 1 H Ur Leukocyte Esterase 25 H Urine RBC 0-5 SEEN Urine WBC 0-5 SEEN Ur Squamous Epith Cells 0-5 SEEN Urine Bacteria 0 SEEN Urine Mucus 3+ Treatment and Re-Evaluation :: Patient was given dose of Phenergan. Patient was also given a dose of Reglan. Patient is resting comfortably on reevaluation. Patient was advised of her findings. Patient was given a prescription for Phenergan suppositories. Patient was instructed to start with liquids and advance her diet as tolerated. Patient was instructed to follow-up with her primary care physician in 5 to 7 days. Patient understood and was agreeable with the plan. All questions were answered. Discharge Plan Triage Chief Complaint: Abd Pain ED Provider: Sacha Regalado Dx/Rx/DC Orders Clinical Impression: Nausea and vomiting Instructions: ED Vomiting (Adult) Prescriptions: New promethazine [Promethegan] 25 mg suppository 25 mg RECTAL Q6H PRN PRN (Reason: Nausea) Qty: 6 0RF Discontinued promethazine [Promethegan] 25 mg suppository 25 mg RECTAL Q6H PRN PRN (Reason: Nausea) Qty: 6 0RF No Action ondansetron 4 mg tablet,disintegrating 4 mg PO Q6H PRN (Reason: nausea and vomiting) Qty: 10 0RF Primary Care Provider: Jm Randolph Referrals: Jm Randolph MD [Primary Care Provider] - 5-7 Days Disposition Disposition: Home, Self Care
[2023-01-21] MEDS: proMETHazine 25 MG/ML Syringe 6.25 MG IM (19:50)
[2023-01-21 20:00] VITALS: BP 119/68; O2SAT 97
[2023-01-21 20:14] LABS: AST(SGOT) 22 U/L (15-37); Alanine Aminotransfer ALT/SGPT 37 U/L (13-56); Albumin, Serum 4.2 g/dL (3.2-5.0); Alkaline Phosphatase 69 U/L (45-117); Bilirubin, Direct 0.17 mg/dL (0.00-0.30); Globulin 3.7 g/dL (2.2-4.2); Lipase 20 U/L (13-75); Protein, Total 7.9 g/dL (6.4-8.2)
[2023-01-21] MEDS: Metoclopramide 10 MG/2 ML Vial IV (20:45)
== END 2023-01-21 21:46 | disposition home or self-care (01) ==
PROVIDERS: Emergency Provider Emergency Medicine; PCP Family Medicine; Visit Provider Emergency Medicine
DX: R11.2 Nausea with vomiting, unspecified (principal); R19.7 Diarrhea, unspecified; R10.11 Right upper quadrant pain; R10.12 Left upper quadrant pain; R10.13 Epigastric pain; F17.210 Nicotine dependence, cigarettes, uncomplicated; Z79.899 Other long term (current) drug therapy
CPT/HCPCS: 80048; 80076; 81001; 83690; 84703; 85025; 96372; 96374; 99282; A4216

== ENCOUNTER 2023-03-11 21:24 | Emergency (ER) | payer OTHER, SELFPAY ==
[2023-03-11 21:24] VITALS: BP 133/79; PULSE 103; RESP 15; TEMP 36.9; O2SAT 100; BMI 24.0
--- NOTE | 2023-03-11 23:14 | EX.ED.GENINJ ---
HPI History of Present Illness Chief Complaint: Laceration Detail of Chief Complaint: Left wrist laceration Informant: patient Onset/Context/Timing Onset: Today Narrative Narrative: Patient presents secondary to left wrist laceration. She was at work carrying a metal container when it slipped cutting the volar aspect of her left wrist. She is right-hand dominant. She is unsure of her last tetanus update. PFSH PFSH Medical History no medical history no medical history Home Medications ondansetron 4 mg disintegrating tablet 4 mg PO Q6H PRN nausea and vomiting #10 tabs 01/06/23 [Rx Last Taken Unknown] promethazine 25 mg rectal suppository (Promethegan) 25 mg RECTAL Q6H PRN PRN Nausea ##6 01/21/23 [Rx Last Taken Unknown] Allergy/AdvReac Type Severity Reaction Status Date / Time fentanyl AdvReac Unknown FAMILY HX Verified 03/11/23 21:28 Surgical History History of thyroid surgery Social History Smoking Status: Current every day smoker tobacco type: cigarettes ROS ROS ED Constitutional Constitutional ED: Denies chills or fever(s) ENT ENT ED: Denies rhinorrhea or sore throat Cardiovascular Cardiovascular: Denies chest pain Gastrointestinal Gastrointestinal: Denies abdominal pain, nausea or vomiting Musculoskeletal Musculoskeletal: Reports extremity pain; Denies back pain Integumentary Reports other Details: Left wrist laceration ; Denies Abrasions or rash Neurologic Neurologic: Denies headache(s), paresthesias or weakness Psychiatric Psychiatric: Denies anxiety or depression Allergic/Immunologic Allergic/Immunologic ED: Denies lip swelling or urticaria EXAM Physical Exam Const Vital Signs: 03/11/23 21:24 Temperature 98.4 F Temperature Source Temporal Pulse Rate 103 H Respiratory Rate 15 Blood Pressure 133/79 H Blood Pressure Mean 97 Pulse Ox 100 Oxygen Delivery Method Room Air Positive well nourished and well developed General Appearance ED: well developed HEENT atraumatic Eyes EOMs intact bilaterally Chest Wall inspection of chest normal Resp normal respiratory effort Cardio regular rhythm Rate: regular rate Extremity Extremity Narrative: 1.5 cm linear laceration to the volar aspect of the left wrist. No active bleeding at this time. Full range of motion of the digits with normal sensation and cap refill. Neuro oriented x3, no focal motor deficits and no sensory deficits noted Skin Skin Narrative: Wrist laceration as noted above. MDM MDM MDM Narrative Medical decision making narrative: Tetanus update provided. 1 cc 1% lidocaine infused locally around the laceration. Wound is cleansed and irrigated. 2 simple interrupted sutures with 5-0 nylon placed with good approximation. Antibiotic ointment placed and dressing applied. Patient will follow-up with her [employer] for wound check and suture removal. Discharge Plan Triage Chief Complaint: Laceration ED Provider: Cristina Ricks Dx/Rx/DC Orders Clinical Impression: Laceration of wrist Instructions: ED Laceration Extremity Prescriptions: No Action ondansetron 4 mg tablet,disintegrating 4 mg PO Q6H PRN (Reason: nausea and vomiting) Qty: 10 0RF promethazine [Promethegan] 25 mg suppository 25 mg RECTAL Q6H PRN PRN (Reason: Nausea) Qty: 6 0RF Stand Alone Forms: Work Status Form Primary Care Provider: Jm Randolph Referrals: [facility] [Group of Physicians] - 5 Days for suture removal Jm Randolph MD [Primary Care Provider] - Disposition Disposition: Home, Self Care
[2023-03-11] MEDS: Lidocaine 1% (20 ml mdv) 20 ML Vial INFILT (23:28)
[2023-03-11] MEDS: Diphth,Pertuss(Acell),Tet Vac 0.5 ML Vial IM (23:38)
[2023-03-11 23:39] VITALS: BP 123/55; PULSE 103; RESP 16; O2SAT 100
== END 2023-03-11 23:45 | disposition home or self-care (01) ==
LOC: ED 23:44
PROVIDERS: Emergency Provider Emergency Medicine; PCP Family Medicine; Visit Provider Emergency Medicine
DX: S61.512A Laceration without foreign body of left wrist, initial encounter (principal); W26.8XXA Contact with other sharp object(s), not elsewhere classified, initial encounter; Z23 Encounter for immunization; Y99.0 Civilian activity done for income or pay; F17.210 Nicotine dependence, cigarettes, uncomplicated
CPT/HCPCS: 12001; 90471; 90715; 99284

== ENCOUNTER 2024-03-01 19:15 | Emergency (ER) | payer OTHER, SELFPAY ==
[2024-03-01 19:16] VITALS: BP 157/94; PULSE 112; RESP 17; TEMP 36.7; O2SAT 100; BMI 24.4
--- NOTE | 2024-03-01 20:21 | EKG12_ITS ---
Test Reason : ANXIETY Blood Pressure : / mmHG Vent. Rate : 111 BPM Atrial Rate : 111 BPM P-R Int : 120 ms QRS Dur : 092 ms QT Int : 348 ms P-R-T Axes : 069 086 009 degrees QTc Int : 473 ms Sinus tachycardia with Premature atrial complexes Minor Nonspecific ST abnormality Borderline Confirmed by Andrés Lopes ([id number]), electronic news gathering editor SUJATA JORDAN ([id number]) on 03/02/2024 9:34:09 AM Referred By: ALEXANDER Confirmed By:Andrés Lopes
--- NOTE | 2024-03-01 20:22 | EDS_ITS ---
HPI History of Present Illness Chief Complaint: Anxiety Narrative Narrative: 33-year-old female past medical history of anxiety, on fluoxetine for the past month, presents with what she thinks was a panic attack. She states she is very stressed at work. She works at [employer], and they have a health inspection tomorrow. She states that her boss was causing her stress. She started feeling heart palpitations. She then developed nausea. This lasted for approximately 30 minutes, but is resolving. She is feeling improved. 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 She presents to the emergency department wanting to be checked out. [facility] Medical History Hyperthyroidism Graves disease Home Medications ?Medication ?Instructions ?Recorded ?Last Taken ?Type ondansetron 4 mg disintegrating 4 mg PO Q6H PRN nausea and 01/06/23 Unknown Rx tablet vomiting #10 tabs promethazine 25 mg rectal 25 mg RECTAL Q6H PRN PRN Nausea ##6 01/21/23 Unknown Rx suppository (Promethegan) methimazole 5 mg tablet 5 mg PO DAILY 03/16/23 Unknown History fluoxetine 20 mg capsule 20 mg PO DAILY 03/01/24 Unknown History Allergy/AdvReac Type Severity Reaction Status Date / Time fentanyl AdvReac Unknown FAMILY HX Verified 03/01/24 19:18 Family History no significant family his Surgical History History of thyroid surgery Social History Smoking Status: Current every day smoker tobacco type: cigarettes ROS ROS ED ROS Narrative Constitutional: No fever, no chills. HEENT: No sore throat. No neck pain. No loss of vision. No rhinorrhea. Cardiovascular: No chest pain. Positive palpitations. No pedal edema. Respiratory: No cough, no shortness of breath. Abdominal: No abdominal pain. Positive nausea. No vomiting. Genitourinary: No dysuria. No hematuria. Musculoskeletal: No myalgias. No arthralgias. Neurologic: No headaches. No dizziness. No lightheadedness. Skin: No rash. No change in color. Psychiatric: No depression. Positive anxiety. No hallucinations. No suicidal ideation. EXAM Physical Exam Narrative Exam Narrative: Afebrile. Vital signs noted. HEENT: Normocephalic. Atraumatic. PERRL, EOMI. Neck soft and supple. No point tenderness or step off. Cardiovascular: Regular rate and rhythm with intermittent tachycardia. No murmurs, rubs, or gallops appreciated. Respiratory: No tachypnea. Lungs clear to auscultation bilaterally. Gastrointestinal: Abdomen soft, nontender, with normoactive bowel sounds. No rebound or guarding. Neurological: Awake. Alert. Nonfocal, nonlateralizing. Skin: No rash. Normal color. No pallor. Musculoskeletal: No pedal edema. Full range of motion extremities. Psychiatric: No active hallucinations, no suicidal ideation. Const Vital Signs: 03/01/24 19:16 Temperature 98.1 F Temperature Source Oral Pulse Rate 112 H Respiratory Rate 17 Blood Pressure 157/94 H Blood Pressure Mean 115 Pulse Ox 100 Oxygen Delivery Method Room Air MDM MDM MDM Narrative Medical decision making narrative: Differential diagnosis includes general anxiety versus panic attack versus palpitations versus atrial fibrillation versus sinus tachycardia. I have low suspicion for acute coronary syndrome as she is not having chest pain, and I have low suspicion for pulmonary embolism because the history and physical does not support this. Additionally, her pulse ox is 100% on room air without evidence of hypoxia. Through shared decision making, was not felt that her laboratory work is indicated. Her symptoms are resolving and she is feeling improved. I do not feel that she requires emergent psychiatric evaluation or hold. EKG will be obtained to rule out dysrhythmia such as atrial fibrillation. She was told that she should continue her fluoxetine. EKG was obtained and interpreted by myself independently as sinus tachycardia with PACs at 111 bpm without other ectopy or acute ST changes. No STEMI. Upon repeat examination at approximately 2109, she states that she feels improved and back to her own baseline. She is going to take tomorrow off work because she does need the stress of that, and she states that her mother recently had a heart attack and that her other relatives was diagnosed with cancer, and she has a special needs child at home as well. She will continue her medications and follow-up. Return instructions were reviewed. Disposition is discharged home in stable condition. History & Record Review Discussion w/independent historian: Patient Discharge Plan Triage Chief Complaint: Anxiety ED Provider: Ric Weiss Dx/Rx/DC Orders Clinical Impression: Anxiety, Panic attack, Sinus tachycardia Instructions: ED Anxiety Reaction, ED About Arrhythmias, ED Panic Attack Prescriptions: No Action methimazole 5 mg tablet 5 mg PO DAILY ondansetron 4 mg tablet,disintegrating 4 mg PO Q6H PRN (Reason: nausea and vomiting) Qty: 10 0RF promethazine [Promethegan] 25 mg suppository 25 mg RECTAL Q6H PRN PRN (Reason: Nausea) Qty: 6 0RF fluoxetine 20 mg capsule 20 mg PO DAILY Stand Alone Forms: ED Work / School Excuse Primary Care Provider: Jm Randolph Referrals: Jm Randolph MD [Primary Care Provider] - 3-5 Days if not improving Activity Restrictions/Additional Instructions: Continue your medications as previously directed. Return with new or worsening symptoms. Print Language: Bangladeshi Disposition Disposition: Home, Self Care
[2024-03-01 21:16] VITALS: BP 116/66; PULSE 88; RESP 16; O2SAT 98
[2024-03-01 21:25] VITALS: BP 116/66; PULSE 88; RESP 16; TEMP 36.7; O2SAT 98
== END 2024-03-01 21:56 | disposition home or self-care (01) ==
PROVIDERS: Emergency Provider Emergency Medicine; PCP Family Medicine; Visit Provider Emergency Medicine
DX: F41.0 Panic disorder [episodic paroxysmal anxiety] (principal); F17.210 Nicotine dependence, cigarettes, uncomplicated; Z79.899 Other long term (current) drug therapy; Z56.6 Other physical and mental strain related to work; Z63.6 Dependent relative needing care at home
CPT/HCPCS: 93005; 99282

== ENCOUNTER 2024-11-11 07:46 | Emergency (ER) | payer OTHER, SELFPAY ==
[2024-11-11 07:46] VITALS: BP 127/80; PULSE 136; RESP 19; TEMP 36.6; O2SAT 100; BMI 24.0
--- NOTE | 2024-11-11 08:15 | ED.VIS.GI ---
HPI HPI - GI History of Present Illness Chief Complaint: Nausea/Vomiting Informant: patient Narrative Narrative: Patient states 2-3 days of vomiting, couple bouts of diarrhea no fevers or chills, no abdominal pain or chest pain, but she states she feels like her heart is racing a lot of the time. No syncopal episodes. She states her heart is beating fast and hard. The initial episode woke her up in the middle of the night with nausea vomiting and this racing heartbeat. She states she has had this before and no one can give her answers as to why. It does not happen very often. She states she has known about Graves' disease for the past 2 years, she has had some thyroid nodules or cyst that she has had drainage feels like she has another 1 now. However she states she is not on treatment for Graves' disease, because I am afraid of what it we will do to my stomach. [facility] Medical History Hyperthyroidism Graves disease Home Medications ?Medication ?Instructions ?Recorded ?Last Taken ?Type methimazole 5 mg tablet 5 mg PO DAILY #14 tabs 11/11/24 Unknown Rx promethazine 25 mg tablet 25 mg PO Q6H PRN PRN Nausea #12 11/11/24 Unknown Rx TABLETS Allergy/AdvReac Type Severity Reaction Status Date / Time fentanyl AdvReac Unknown FAMILY HX Verified 11/11/24 07:47 Family History no significant family his Surgical History History of thyroid surgery Social History Smoking Status: Current every day smoker tobacco type: cigarettes ROS ROS ED Constitutional Constitutional ED: Denies chills or fever(s) Eyes Eyes: Denies change in vision or diplopia ENT ENT ED: Denies rhinorrhea or sore throat Cardiovascular Cardiovascular: Reports palpitations and racing heartbeat; Denies chest pain Respiratory/Chest Respiratory/Chest: Denies cough or dyspnea Gastrointestinal Gastrointestinal: Reports diarrhea, nausea and vomiting; Denies abdominal pain, hematemesis, hematochezia or melena Genitourinary Genitourinary ED: Denies dysuria or hematuria Musculoskeletal Musculoskeletal: Denies back pain or neck pain Integumentary Denies abscess or rash Neurologic Neurologic: Denies headache(s), paresthesias or weakness Psychiatric Psychiatric: Reports anxiety; Denies suicidal thoughts EXAM Physical Exam Const Vital Signs: 11/11/24 07:46 11/11/24 08:32 11/11/24 09:00 Temperature 98 F 98.2 F 97.6 F L Temperature Source Temporal Oral Oral Pulse Rate 136 H 89 61 Respiratory Rate 19 H 16 16 Blood Pressure 127/80 H 110/76 121/79 H Blood Pressure Mean 95 87 93 Pulse Ox 100 100 99 Oxygen Delivery Method Room Air Room Air Room Air 11/11/24 10:00 Temperature 97.6 F L Temperature Source Temporal Pulse Rate 67 Respiratory Rate 16 Blood Pressure 123/74 H Blood Pressure Mean 90 Pulse Ox 99 Oxygen Delivery Method Positive well nourished and well developed General Appearance ED: well developed and NAD HEENT Reports moist mucous membranes normocephalic and atraumatic Eyes PERRL and EOMs intact bilaterally Neck full ROM and supple Resp normal respiratory effort and clear to auscultation bilaterally Cardio regular rate, regular rhythm and no murmurs Cardio Narrative: 130s for staff prior to my exam but during my exam heart rate is in the high 90s GI non-tender and non-distended Auscultation: normoactive bowel sounds Palpation: soft Back/Spine no CVA tenderness General Back: other FROM Extremity normal to inspection General Extremety ED: Negative for edema, pulses abnormal or tenderness General Extremity: Negative for edema or pulses abnormal Neuro oriented x3, CN's II-XII intact bilaterally and no sensory deficits noted Sensorium / Orientation: awake and alert Motor Exam: strength 5/5 throughout Psych thought process normal Mood & Affect: anxious Skin no rashes or lesions noted and no wounds MDM MDM MDM Narrative Medical decision making narrative: Abdominal labs as well as an EKG obtained, her EKG shows a sinus arrhythmia at a rate of 81 with no ectopy. I do not see anything concerning such as nonconducted beats. She was given IV fluids and Zofran but still was retching so this was followed by Ativan and Reglan as she seems quite anxious. These really helped. She was no longer vomiting still felt a little nauseated, no more tachycardia, she asked for another dose of Reglan which was given prior to discharge. Her TSH came back low, so I added T4 and free T3, they came back within normal range. The rest of her labs are unremarkable, she has a negative test. Not concerned about a PE here. She has had no tachycardia since her initial triage tachycardia of 130s. Unsure if this was dysrhythmia or anxiety or both, I do not think she is in thyroid storm here. We discussed her methimazole that is on her chart, she states she has been not taking it for months or maybe longer and she does not have it any longer. She made an appointment to be seen next week by her doctor, and she is open to taking the methimazole that was prescribed to her before, so I am going to prescribe her a refill for it in addition to some Phenergan. She is comfortable with that plan and she will follow-up. Lab Data Attestation: I reviewed the patient's lab results. Labs: Laboratory Results - last 24 hr 11/11/24 08:30 WBC 6.3 RBC 4.28 Hgb 12.5 Hct 38.8 MCV 90.7 MCH 29.2 MCHC 32.2 RDW Std Deviation 41.0 RDW Coeff of Garfield 12.5 Plt Count 211 MPV 10.8 Immature Gran % (Auto) 0.300 Neut % (Auto) 54.7 Lymph % (Auto) 35.3 Simpson % (Auto) 7.1 Eos % (Auto) 2.1 Baso % (Auto) 0.5 Absolute Neuts (auto) 3.5 Absolute Lymphs (auto) 2.23 Nucleated RBC % 0 Sodium 139 Potassium 3.5 Chloride 105 Carbon Dioxide 22.2 Anion Gap 12 BUN 9 Creatinine 0.79 Estim Creat Clear Calc 84.57 Est GFR (MDRD) Non-Af 102 BUN/Creatinine Ratio 11.8 Glucose 116 H Calcium 9.1 Total Bilirubin 0.56 AST 23 ALT 19 Alkaline Phosphatase 63 Total Protein 7.2 Albumin 4.4 Globulin 2.8 Albumin/Globulin Ratio 1.6 TSH 0.255 L Thyroxine (T4) 8.7 Free T3 pg/dL 3.2 Serum , Qual NEGATIVE Rhythm Strip Rhythm Strip: Sinus Rhythm Rate: 96 Ectopy: None EKG Initial EKG: Attestation: I personally reviewed and interpreted this EKG as follows: Interpretation: No Acute Injury Pattern and Sinus Arrythmia Comments: Nml axis & intervals; nml EKG Discharge Plan Triage Chief Complaint: Nausea/Vomiting ED Provider: Maninder Hutson Dx/Rx/DC Orders Clinical Impression: Heart palpitations, Hyperthyroidism, Nausea and vomiting, Anxiety Instructions: ED Hyperthyroidism Prescriptions: New promethazine 25 mg tablet 25 mg PO Q6H PRN PRN (Reason: Nausea) Qty: 12 0RF methimazole 5 mg tablet 5 mg PO DAILY Qty: 14 0RF Primary Care Provider: Jm Randolph Referrals: Jm Randolph MD [Primary Care Provider] - As soon as possible Print Language: Macedonian Disposition Disposition: Home, Self Care
[2024-11-11] MEDS: 0.9% Normal Saline (1000mL) 1,000 ML 999 ML IV (08:31)
[2024-11-11] MEDS: Ondansetron 4 MG/2 ML Vial IV (08:31)
[2024-11-11 08:32] VITALS: BP 110/76; PULSE 89; RESP 16; TEMP 36.8; O2SAT 100
[2024-11-11 08:57] LABS: Absolute Lymphocyte Count 2.23 X10^3/uL (0.83-4.51); Absolute Neutrophil Count 3.5 X10^3/uL (2.0-7.7); Basophil# 0.03 X10^3/uL; Basophil% 0.5 % (0-1); Eosinophil# 0.13 X10^3/uL; Eosinophils% 2.1 % (0-5); Hematocrit 38.8 % (37-47); Hemoglobin 12.5 g/dL (12.0-15.0); Lymphocyte # 2.23 X10^3/ul (0.83-4.51); Lymphocyte % 35.3 % (19-41); Mean Corp Hgb Conc 32.2 g/dL (32-36); Mean Corpuscular Hgb 29.2 pg (27.0-32.0); Mean Corpuscular Volume 90.7 fL (81-99); Mean Platelet Vol. 10.8 fl (6.2-12.0); Monocyte# 0.45 X10^3/uL; Monocyte% 7.1 % (0-10); NRBC Flagged by Analyzer 0 % (0-5); Neutrophil # 3.45 X10^3/uL (2.7-7.7); Neutrophil % 54.7 % (47-70); Platelet Count 211 K/mm3 (150-450); RBC Distribution Width CV 12.5 % (11.6-14.6); Red Blood Count 4.28 M/mm3 (4.2-5.4); White Blood Count 6.3 K/mm3 (4.4-11.0)
[2024-11-11] MEDS: Lorazepam 2 MG/ML WCH Syringe 0.5 MG IV (08:57)
[2024-11-11] MEDS: Metoclopramide 10 MG/2 ML Vial 5 MG IV ×2 (08:57→11:41)
[2024-11-11 09:00] VITALS: BP 121/79; PULSE 61; RESP 16; TEMP 36.4; O2SAT 99
[2024-11-11 09:17] LABS: Internal QC Validated? YES +Cl - CLEAR BKGD; Pregnancy, Serum, hCG Quali. NEGATIVE Negative
[2024-11-11 09:45] LABS: ALB/GLOB Ratio 1.6 RATIO (0.9-2.4); AST(SGOT) 23 U/L (<=31); Alanine Aminotransfer ALT/SGPT 19 U/L (<=34); Albumin, Serum 4.4 g/dL (3.5-5.0); Alkaline Phosphatase 63 U/L (35-104); Anion Gap 12 (5-15); BUN 9 mg/dL (4-19); BUN/Creat Ratio 11.8 RATIO (10-20); Calcium,Total 9.1 mg/dL (7.6-11.0); Carbon Dioxide 22.2 mmol/L (21.0-32.0); Chloride 105 mmol/L (98-108); Creatinine, Serum 0.79 mg/dL (0.70-1.20); EST Glomerular Filtration Rate 102 (>60); Estimated Creatinine Clearance 84.57 ml/min (50-250); Globulin 2.8 g/dL (2.2-4.2); Glucose 116 mg/dL (70-99); Potassium 3.5 mmol/L (3.3-5.1); Protein, Total 7.2 g/dL (5.9-8.4); Sodium Level 139 mmol/L (133-145); Total Bilirubin 0.56 mg/dL (0.00-1.30)
[2024-11-11 09:46] LABS: Thyroid Stim Hormone (TSH) 0.255 uIU/mL (0.300-4.200)
[2024-11-11 10:00] VITALS: BP 123/74; PULSE 67; RESP 16; TEMP 36.4; O2SAT 99
[2024-11-11 11:24] LABS: Free T3 3.2 pg/mL (2.18-3.98); T4 Total, Thyroxin 8.7 ug/dL (4.8-13.9)
--- NOTE | 2024-11-11 11:25 | ED.RN ---
confirmed with dr. michael haddad
[2024-11-11 12:00] VITALS: BP 104/66; PULSE 68
[2024-11-11 12:18] VITALS: BP 104/66; PULSE 68; RESP 15; TEMP 36.6; O2SAT 99
== END 2024-11-11 12:19 | disposition home or self-care (01) ==
PROVIDERS: Emergency Provider Emergency Medicine; PCP Family Medicine; Visit Provider Emergency Medicine
DX: R00.2 Palpitations (principal); R11.2 Nausea with vomiting, unspecified; E05.90 Thyrotoxicosis, unspecified without thyrotoxic crisis or storm; F41.9 Anxiety disorder, unspecified; F17.210 Nicotine dependence, cigarettes, uncomplicated
CPT/HCPCS: 80053; 84436; 84443; 84481; 84703; 85025; 93005; 96361; 96374; 96375; 96376; 99283; A4216; J2405

== ENCOUNTER 2024-11-14 12:14 | Emergency (ER) | payer OTHER, SELFPAY ==
[2024-11-14 12:16] VITALS: BP 127/79; PULSE 79; RESP 16; TEMP 36.8; O2SAT 98; BMI 24.3
--- NOTE | 2024-11-14 12:17 | EDS_ITS ---
HPI History of Present Illness Chief Complaint: Nausea/Vomiting [facility] Medical History Hyperthyroidism Graves disease Home Medications ?Medication ?Instructions ?Recorded ?Last Taken ?Type methimazole 5 mg tablet 5 mg PO DAILY #14 tabs 11/1111/14/24 Rx promethazine 25 mg tablet 25 mg PO Q6H PRN PRN Nausea #12 11/11/24 11/14/24 Rx TABLETS Allergy/AdvReac Type Severity Reaction Status Date / Time fentanyl AdvReac Unknown FAMILY HX Verified 11/14/24 12:15 Family History no significant family his Surgical History History of thyroid surgery Social History Smoking Status: Current every day smoker tobacco type: cigarettes EXAM Physical Exam Const Vital Signs: 11/14/24 12:16 Temperature 98.3 F Temperature Source Oral Pulse Rate 79 Respiratory Rate 16 Blood Pressure 127/79 H Blood Pressure Mean 95 Pulse Ox 98 Oxygen Delivery Method Room Air MDM MDM MDM Narrative Medical decision making narrative: HISTORY OF PRESENT ILLNESS: Chief complaint: Nausea 34-year-old female history of nausea vomiting, hyperthyroidism, palpitations, anxiety presents with nausea. She notes this began over a week ago. She notes no recent travel. Sick contacts. Antibiotics. Notes history of similar symptom in the past. She has had GI issues of 15 which has not seen a GI doctor since that time. She denies abdominal pain, chest pain, shortness of breath. No fevers. She does use a vape pen with marijuana but denies any recent change in use of marijuana. She notes she saw her PCP prior to arrival he sent her in because her heart rate was elevated. Patient notes she was bit over the weekend with oral Phenergan as she know she woke up this morning was more nauseous. Denies any vomiting today. REVIEW OF SYSTEMS: Pertinent positives: Nausea vomiting Pertinent negatives: As per HPI PHYSICAL EXAM: Nursing triage notes reviewed, Vital signs reviewed Constitutional: please see mdm HENT: MMM Eyes: Pupils equal round and reactive to light, Extraocular muscles intact Neck: No stridor, no JVD, full neck ROM Lungs: Clear to auscultation, No wheezing or rales. No increased work of breathing, no conversational dyspnea, no accessory muscle use, no nasal flaring. No respiratory distress noted Heart: Regular rate and rhythm, No murmurs, No rubs and No gallops, 2+ distal pulses (radial, femoral, posterior tibial) in all extremities Abdomen: Soft, there is no tenderness, rigidity, rebound or guarding, no obvious peritoneal signs, no palpable pulsatile abdominal masses, no auscultated abdominal bruit : No CVAT Extremities: No edema Neuro: No new focal neurological deficits, cranial nerves II through XII intact, 5/5 strength in all present extremities. Intact sensation to light touch in all present extremities, 2+ reflexes bilateral patella tendons. Skin: No rash or lesions noted MEDICAL DECISION MAKING: Chief Complaint: please see HPI External records reviewed: Reviewed labs from 11/11/2024 which showed a normal BMP without evidence of significant electrolyte abnormalities, no anion gap, no acute kidney injury., LFTs noted low thyroid function but normal T3 and T4, negative test. Was prescribed Phenergan. CBC with no leukocytosis, anemia or thrombocytopenia noted. Factors affecting care: as per HPI Social determinants of health: Smokes marijuana via vape pen History obtained from others: None Consults: none [facility] Narrative: The patient was initially hemodynamically stable, afebrile and nontoxic- appearing. Heart rate initially 79 exam completely benign. No significant abdominal tenderness. No focal cardiopulmonary maladies. No sign of dehydration I considered the following differential diagnosis: Dehydration, intra-abdominal pathology The patient's exam was not consistent with an acute intra-abdominal pathology. Specifically no sign of perforation, obstruction. Patient did not complain of the abdominal pain. Given his benign nature of exam, lack of complaints and stable vitals I did not pursue advanced imaging at this time I obtained labs to further determine if the patient was suffering from a life- threatening etiology. ALL IMAGES (IF OBTAINED) HAVE BEEN PERSONALLY REVIEWED AND INTERPRETED BY MYSELF. CBC without leukocytosis, severe anemia, no thrombocytopenia. With leukocytosis suggestive of systemic inflammation, no anemia or thrombocytopenia CMP without evidence of acute kidney injury, significant electrolyte abnormality, anion gap to suggest end organ hypo-perfusion, no evidence of metabolic acidosis with a normal bicarbonate, no evidence of hepatobiliary obstructive pathology. Lipase is wnl indicating no pancreatic inflammation. Repeat abdominal exam benign. Vitals remained stable. Patient was able tolerate p.o. She was discharged with Reglan. Strict return precautions were discussed. The patient and/or family, caregivers express understanding. The patient and/or family, caregivers agrees with the plan. Shared decision making: I will have a discussion with the patient and or visitors regarding risk/benefits of further testing or admission. They will be made aware of of the risk/benefits inherent in this decision they will be given the opportunity to voice understanding. Total critical care time today provided was at least 0 minutes. This excludes separately billable procedures. Critical care time (if documented) is secondary to the patient having high probability of clinically significant/life threatening deterioration in the patient's condition which required my urgent intervention. Impression: 1. Nausea 2. History of marijuana use Dispo: Discharge home This note was generated with Noquo dictation software. It may contain incorrect words, spelling, and punctuation that were not noted in review of the chart prior to signing. Lab Data Labs: Laboratory Results - last 24 hr 11/14/24 12:25 WBC 11.6 H RBC 4.36 Hgb 12.9 Hct 39.8 MCV 91.3 MCH 29.6 MCHC 32.4 RDW Std Deviation 41.6 RDW Coeff of Garfield 12.4 Plt Count 227 MPV 10.8 Immature Gran % (Auto) 0.400 Neut % (Auto) 81.6 H Lymph % (Auto) 13.3 L [place] % (Auto) 4.1 Eos % (Auto) 0.3 Baso % (Auto) 0.3 Absolute Neuts (auto) 9.5 H Absolute Lymphs (auto) 1.54 Nucleated RBC % 0 Sodium 141 Potassium 3.9 Chloride 106 Carbon Dioxide 23.0 Anion Gap 11 BUN 7 Creatinine 0.78 Estim Creat Clear Calc 85.65 Est GFR (MDRD) Non-Af 103 BUN/Creatinine Ratio 9.0 L Glucose 110 H Calcium 9.2 Total Bilirubin 0.41 AST 28 ALT 23 Alkaline Phosphatase 69 Total Protein 7.0 Albumin 4.5 Globulin 2.5 Albumin/Globulin Ratio 1.8 Lipase 18 Discharge Plan Triage Chief Complaint: Nausea/Vomiting ED Provider: John Fernandez Dx/Rx/DC Orders Prescriptions: No Action promethazine 25 mg tablet 25 mg PO Q6H PRN PRN (Reason: Nausea) Qty: 12 0RF methimazole 5 mg tablet 5 mg PO DAILY Qty: 14 0RF Primary Care Provider: Jm Randolph Referrals: Jm Randolph MD [Primary Care Provider] - Print Language: Chinese
--- NOTE | 2024-11-14 12:26 | EKG12_ITS ---
Test Reason : N/V Blood Pressure : */* mmHG Vent. Rate : 61 BPM Atrial Rate : 61 BPM P-R Int : 132 ms QRS Dur : 90 ms QT Int : 396 ms P-R-T Axes : 75 85 64 degrees QTcB Int : 398 ms Normal sinus rhythm Normal ECG Confirmed by EMELI PINEDA, LIZZY ([id number]), editorial director SUJATA JORDAN ([id number]) on 11/15/2024 1:37:26 PM Referred By: Confirmed By: LIZZY SAINZ MD
[2024-11-14] MEDS: 0.9% Normal Saline (1000mL) 1,000 ML 1000 ML IV (12:36)
[2024-11-14] MEDS: Metoclopramide 10 MG/2 ML Vial 5 MG IV (12:36)
[2024-11-14 12:38] LABS: Absolute Lymphocyte Count 1.54 X10^3/uL (0.83-4.51); Absolute Neutrophil Count 9.5 X10^3/uL (2.0-7.7); Basophil# 0.04 X10^3/uL; Basophil% 0.3 % (0-1); Eosinophil# 0.04 X10^3/uL; Eosinophils% 0.3 % (0-5); Hematocrit 39.8 % (37-47); Hemoglobin 12.9 g/dL (12.0-15.0); Lymphocyte # 1.54 X10^3/ul (0.83-4.51); Lymphocyte % 13.3 % (19-41); Mean Corp Hgb Conc 32.4 g/dL (32-36); Mean Corpuscular Hgb 29.6 pg (27.0-32.0); Mean Corpuscular Volume 91.3 fL (81-99); Mean Platelet Vol. 10.8 fl (6.2-12.0); Monocyte# 0.47 X10^3/uL; Monocyte% 4.1 % (0-10); NRBC Flagged by Analyzer 0 % (0-5); Neutrophil # 9.46 X10^3/uL (2.7-7.7); Neutrophil % 81.6 % (47-70); Platelet Count 227 K/mm3 (150-450); RBC Distribution Width CV 12.4 % (11.6-14.6); RBC Distribution Width SD 41.6 fl (35.1-43.9); Red Blood Count 4.36 M/mm3 (4.2-5.4); White Blood Count 11.6 K/mm3 (4.4-11.0)
[2024-11-14] MEDS: Lorazepam 2 MG/ML WCH Syringe 0.5 MG IV (12:48)
[2024-11-14 13:56] LABS: ALB/GLOB Ratio 1.8 RATIO (0.9-2.4); AST(SGOT) 28 U/L (<=31); Alanine Aminotransfer ALT/SGPT 23 U/L (<=34); Albumin, Serum 4.5 g/dL (3.5-5.0); Alkaline Phosphatase 69 U/L (35-104); Anion Gap 11 (5-15); BUN 7 mg/dL (4-19); Calcium,Total 9.2 mg/dL (7.6-11.0); Chloride 106 mmol/L (98-108); Creatinine, Serum 0.78 mg/dL (0.70-1.20); EST Glomerular Filtration Rate 103 (>60); Estimated Creatinine Clearance 85.65 ml/min (50-250); Globulin 2.5 g/dL (2.2-4.2); Glucose 110 mg/dL (70-99); Lipase 18 U/L (13-75); Potassium 3.9 mmol/L (3.3-5.1); Sodium Level 141 mmol/L (133-145); Total Bilirubin 0.41 mg/dL (0.00-1.30)
[2024-11-14 14:15] VITALS: BP 113/78; PULSE 53; RESP 17; RESP 22; O2SAT 98
[2024-11-14 14:36] VITALS: BP 113/78; PULSE 53; RESP 22; TEMP 36.8; O2SAT 98
== END 2024-11-14 14:47 | disposition home or self-care (01) ==
PROVIDERS: Emergency Provider Emergency Medicine; PCP Family Medicine; Visit Provider Emergency Medicine
DX: R11.0 Nausea (principal); F12.90 Cannabis use, unspecified, uncomplicated; F17.210 Nicotine dependence, cigarettes, uncomplicated
CPT/HCPCS: 80053; 83690; 85025; 93005; 96361; 96374; 96375; 99284; A4216

== ENCOUNTER 2024-11-19 07:53 | Emergency (ER) | payer OTHER, SELFPAY ==
[2024-11-19 07:53] VITALS: BP 131/81; PULSE 119; PULSE 128; RESP 20; TEMP 36.6; O2SAT 98; BMI 23.8
[2024-11-19 08:27] LABS: Hematocrit 40.7 % (37-47); Hemoglobin 13.2 g/dL (12.0-15.0); Immature Granulocytes Count 0.010 X10^3/uL (0.0-0.0); Mean Corp Hgb Conc 32.4 g/dL (32-36); Mean Corpuscular Volume 90.4 fL (81-99); Mean Platelet Vol. 10.4 fl (6.2-12.0); NRBC Flagged by Analyzer 0 % (0-5); Platelet Count 232 K/mm3 (150-450); RBC Distribution Width CV 12.3 % (11.6-14.6); RBC Distribution Width SD 40.9 fl (35.1-43.9); Red Blood Count 4.50 M/mm3 (4.2-5.4); White Blood Count 6.3 K/mm3 (4.4-11.0)
[2024-11-19 08:59] LABS: D-Dimer Quantitative (DVT/PE) < 0.27 FEU/ug/m (0.27-0.49)
[2024-11-19 09:05] LABS: Troponin T High Sensitivity < 6 ng/L (<=14)
[2024-11-19 09:08] LABS: Anion Gap 14 (5-15); BUN 4 mg/dL (4-19); BUN/Creat Ratio 6.4 RATIO (10-20); Calcium,Total 9.2 mg/dL (7.6-11.0); Carbon Dioxide 21.2 mmol/L (21.0-32.0); Chloride 105 mmol/L (98-108); Estimated Creatinine Clearance 98.25 ml/min (50-250); Glucose 107 mg/dL (70-99); Potassium 3.5 mmol/L (3.3-5.1)
[2024-11-19 09:53] VITALS: BP 105/69
[2024-11-19 11:00] VITALS: BP 113/70; PULSE 57; RESP 22; O2SAT 100
[2024-11-19 11:02] LABS: Troponin T High Sens 2 HR < 6 ng/L (<=14)
[2024-11-19 12:21] VITALS: BP 107/57; PULSE 62; RESP 19; O2SAT 98
[2024-11-19 12:51] VITALS: BP 110/79; PULSE 99; RESP 14; TEMP 36.6; O2SAT 100
== END 2024-11-19 12:54 | disposition home or self-care (01) ==
PROVIDERS: Emergency Provider Emergency Medicine; PCP Family Medicine; Visit Provider Emergency Medicine
DX: R00.2 Palpitations (principal); R11.0 Nausea; E05.90 Thyrotoxicosis, unspecified without thyrotoxic crisis or storm; F41.9 Anxiety disorder, unspecified; F17.210 Nicotine dependence, cigarettes, uncomplicated; F17.290 Nicotine dependence, other tobacco product, uncomplicated
CPT/HCPCS: 71045; 80048; 84443; 84484; 85025; 85379; 93005; 96374; 96375; 99284; A4216; J2405

== ENCOUNTER → 2024-11-25 | Outpatient (CLI) | payer OTHER, SELFPAY ==
[2024-11-25 15:20] LABS: Hematocrit 43.3 % (37-47); Hemoglobin 13.9 g/dL (12.0-15.0); Immature Granulocytes Count 0.020 X10^3/uL (0.0-0.0); Mean Corp Hgb Conc 32.1 g/dL (32-36); Mean Corpuscular Volume 92.9 fL (81-99); Mean Platelet Vol. 12.0 fl (6.2-12.0); NRBC Flagged by Analyzer 0 % (0-5); Platelet Count 286 K/mm3 (150-450); RBC Distribution Width CV 12.6 % (11.6-14.6); RBC Distribution Width SD 43.1 fl (35.1-43.9); Red Blood Count 4.66 M/mm3 (4.2-5.4); White Blood Count 8.7 K/mm3 (4.4-11.0)
[2024-11-25 16:09] LABS: AST(SGOT) 27 U/L (<=31); Alanine Aminotransfer ALT/SGPT 22 U/L (<=34); Albumin, Serum 4.8 g/dL (3.5-5.0); Alkaline Phosphatase 62 U/L (35-104); Anion Gap 12 (5-15); BUN 5 mg/dL (4-19); BUN/Creat Ratio 6.6 RATIO (10-20); Calcium,Total 9.8 mg/dL (7.6-11.0); Carbon Dioxide 25.6 mmol/L (21.0-32.0); Chloride 101 mmol/L (98-108); Globulin 2.8 g/dL (2.2-4.2); Glucose 105 mg/dL (70-99); Potassium 3.7 mmol/L (3.3-5.1)
[2024-11-29 16:09] LABS: Thyroglobulin, Serum Qt. 174.9 ng/mL (1.5-38.5); Thyroid Stim Immunoglob 2.14 IU/L (0.00-0.55)
== END | disposition home or self-care (01) ==
LOC: MFPLAB 12:13
PROVIDERS: PCP Family Medicine; Referring Provider Family Medicine; Visit Provider Family Medicine
DX: E05.00 Thyrotoxicosis with diffuse goiter without thyrotoxic crisis or storm (principal)
CPT/HCPCS: 36415; 80053; 84432; 84439; 84443; 84445; 85025; 86376; 86800

== ENCOUNTER → 2024-12-15 | Outpatient (CLI) | payer OTHER, SELFPAY | END | disposition home or self-care (01) | LOC: MFPLAB 13:58 | PROVIDERS: PCP Family Medicine; Referring Provider Family Medicine; Visit Provider Family Medicine | DX: E05.00 Thyrotoxicosis with diffuse goiter without thyrotoxic crisis or storm (principal) | CPT/HCPCS: 36415; 84439; 84443 ==

== ENCOUNTER → 2025-01-04 | Outpatient (CLI) | payer OTHER, SELFPAY ==
--- NOTE | 2025-01-04 10:28 | NM_ITS ---
PROCEDURE: GASTRIC EMPTYING STUDY 01/04/2025 REASON FOR EXAM: EARLY SAITEY COMPARISON: None TECHNIQUE: The patient ingested a standard meal of oatmeal, sulfur colloid, and water. Total time taken to ingest the meal was minutes. There was no vomiting postprandially. Anterior and posterior planar images of the upper abdomen were obtained for 1 minute immediately following the meal at 1h, 2h and 4h if more than 10% of the activity persisted within the stomach. Regions of interest were drawn, and a geometric mean was used to calculate a [id number]-[id number]-[id number]. RADIOPHARMACEUTICAL: Sulfur colloid DOSE 1mCi FINDINGS: Percent activity remaining in stomach: 1 hour 49 % (normal 37-90%) NM/Gastric Emptying Study IMPRESSION: Normal gastric emptying. Reading Location: [id number]
== END | disposition home or self-care (01) ==
LOC: NM 10:26
PROVIDERS: PCP Family Medicine; Referring Provider Family Medicine; Visit Provider Family Medicine
DX: R68.81 Early satiety (principal)
CPT/HCPCS: 78264; A9541

== ENCOUNTER 2025-02-16 06:19 | Emergency (ER) | payer SELFPAY ==
[2025-02-16 06:20] VITALS: BP 124/73; PULSE 99; RESP 16; TEMP 36.6; O2SAT 100; BMI 25.1
--- NOTE | 2025-02-16 06:45 | EDS_ITS ---
HPI History of Present Illness HPI Narrative: 34-year-old female atraumatic right wrist pain. 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 Yesterday her wrist began getting sore. Denies any fall or other injury. She is right-hand dominant. No prior history or surgery to the right wrist. No other complaints. Chief Complaint: Upper Extremity Injury Informant: patient Occured/Mechanism Mechanism/Context: No injury and No blunt trauma Onset/Context/Timing Onset: Yesterday Context: Gradual Onset Timing: Continuous Quality of Pain: Sharp Current Severity: Moderate Maximum Severity: Moderate Associated Symptoms Associated Symptoms: Negative for Parasthesia, Weakness or Loss of Funtion Narrative Narrative: 34-year-old female [id number] right wrist pain since yesterday. No fall injury or trauma. Does repetitive motion at work. Prior similar symptoms: No Recent Illness/Hospitalization: No [facility] Medical History Hyperthyroidism Graves disease Home Medications ?Medication ?Instructions ?Recorded ?Last Taken ?Type methimazole 5 mg tablet 5 mg PO TID #90 tabs 5 Unknown Rx atenolol 50 mg tablet 50 mg PO BID 02/16/25 Unknow n History omeprazole 40 mg capsule,delayed 40 mg PO DAILY Unknown History release
--- NOTE | 2025-02-16 06:45 | EX.ED.UPPERE ---
HPI History of Present Illness HPI Narrative: 34-year-old female atraumatic right wrist pain. 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 Yesterday her wrist began getting sore. Denies any fall or other injury. She is right-hand dominant. No prior history or surgery to the right wrist. No other complaints. Chief Complaint: Upper Extremity Injury Informant: patient Occured/Mechanism Mechanism/Context: No injury and No blunt trauma Onset/Context/Timing Onset: Yesterday Context: Gradual Onset Timing: Continuous Quality of Pain: Sharp Current Severity: Moderate Maximum Severity: Moderate Associated Symptoms Associated Symptoms: Negative for Parasthesia, Weakness or Loss of Funtion Narrative Narrative: 34-year-old female [id number] right wrist pain since yesterday. No fall injury or trauma. Does repetitive motion at work. Prior similar symptoms: No Recent Illness/Hospitalization: No [facility] Medical History Hyperthyroidism Graves disease Home Medications ?Medication ?Instructions ?Recorded ?Last Taken ?Type methimazole 5 mg tablet 5 mg PO TID #90 tabs 11/19/24 Unknown Rx atenolol 50 mg tablet 50 mg PO BID 02/16/25 Unknown History omeprazole 40 mg capsule,delayed 40 mg PO DAILY 02/16/25 Unknown History release Allergy/AdvReac Type Severity Reaction Status Date / Time fentanyl AdvReac Unknown FAMILY HX Verified 02/16/25 06:22 Surgical History History of thyroid surgery Social History Smoking Status: Current every day smoker tobacco type: cigarettes and e-cigarettes ROS ROS ED ROS Narrative Denies recent illness. Constitutional Constitutional ED: Denies chills or fever(s) Eyes Eyes: Denies blurry vision ENT ENT ED: Denies ear pain or rhinorrhea Cardiovascular Cardiovascular: Denies chest pain or palpitations Respiratory/Chest Respiratory/Chest: Denies cough or dyspnea Gastrointestinal Gastrointestinal: Denies abdominal pain Genitourinary Genitourinary ED: Denies dysuria or hematuria Musculoskeletal Musculoskeletal: Denies back pain or myalgias Integumentary Denies abscess or Abrasions Neurologic Neurologic: Denies headache(s) Psychiatric Psychiatric: Denies anxiety or depression Endocrine Endocrinology: Denies cold intolerance, heat intolerance, polydipsia or polyphagia Hematologic/Lymphatic Hematologic/Lymphatic: Denies easy bleeding, easy bruising or lymphadenopathy Allergic/Immunologic Allergic/Immunologic ED: Denies mouth swelling, tongue swelling or urticaria EXAM Physical Exam Narrative Exam Narrative: 34-year-old female. Vital signs stable afebrile. HEENT exam normal. Moist mucous membranes. Pupils round reactive light. Neck nontender. Lungs clear to auscultation bilaterally. Heart regular rhythm no murmur. Chest wall and ribs nontender. Abdomen soft nontender. Moving all 4 extremities. Left upper and both lower extremities are unremarkable with normal range of motion. Strength. Right shoulder and elbow nontender. Right wrist tender mildly swollen. Limited flexion extension due to pain. Palpable radial pulse. 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 Normal touch sensation and cap refill in her hand. No redness. No signs of infection. No gross bony deformity. No lymphangitic streaking. No axillary lymphadenopathy. Tender to palpation of the wrist. Neurologically she is awake alert. No focal motor deficits. Const Vital Signs: 02/16/25 06:20 Temperature 98 F Temperature Source Oral Pulse Rate 99 Respiratory Rate 16 Blood Pressure 124/73 H Blood Pressure Mean 90 Pulse Ox 100 Oxygen Delivery Method Room Air Positive well nourished and well developed; Negative for cachectic, contractures or unkempt General Appearance ED: well developed and NAD; Negative for unkempt, cachectic, contractures, cyanotic or diaphoretic Nutritional Appearance: Negative for cachectic HEENT Reports moist mucous membranes normocephalic and atraumatic; Negative for trauma or tenderness Eyes PERRL and EOMs intact bilaterally Neck full ROM and supple Chest Wall inspection of chest normal and palpation of chest normal Resp normal respiratory effort and clear to auscultation bilaterally Cardio regular rate, regular rhythm, S1 normal heart sound, S2 normal heart sound and no murmurs Rate: Negative for bradycardia or tachycardic GI non-tender, non-distended and no masses Palpation: soft; Negative for tender, guarding or rebound tenderness present Back/Spine no CVA tenderness Extremity normal to inspection and full ROM Extremity Narrative: Except right wrist. Mild swelling palmar aspect. Normal radial pulse. No redness no warmth. Limited flexion extension due to pain. No deformity. Right hand normal strength and sensation normal cap refill. Forearm and elbow and upper arm nontender. No lymphangitic streaking. No axillary lymphadenopathy. Neuro oriented x3, CN's II-XII intact bilaterally, moves all extremities, no focal motor deficits and no sensory deficits noted Sensorium / Orientation: alert, oriented to person, oriented to place and oriented to time Motor Exam: strength 5/5 throughout Psych mental status grossly normal Appearance: Negative for unkempt Skin Lesions: no lesions Rashes: no rashes Trauma: no lacerations or abrasions; Negative for abrasion or laceration MDM MDM MDM Narrative Medical decision making narrative: 34-year-old female suspect right wrist sprain and/or tendonitis from repetitive motion at work. No fall injury or trauma. X-ray will be obtained. Most likely a sprain or tendinitis. Motrin for pain. Repeat exam unchanged patient was placed in a Velcro wrist splint more for comfort and immobilization. This is most likely a tendinitis from overuse versus a sprain. Treated with ice and elevation. Anti-inflammatories follow-up if not improving. Patient is comfortable to plan. History & Record Review Discussion w/independent historian: Patient Radiography Diagnostic Testing: Right wrist x-ray, 3 views, interpreted by myself shows no acute fracture. No dislocation. No acute process. Discharge Plan Triage Chief Complaint: Upper Extremity Injury ED Provider: Augustus Sahni Dx/Rx/DC Orders Clinical Impression: Tendonitis, History of wrist sprain Instructions: ED Tendonitis, ED Wrist Sprain Prescriptions: No Action methimazole 5 mg tablet 5 mg PO TID Qty: 90 0RF omeprazole 40 mg capsule,delayed release(DR/EC) 40 mg PO DAILY atenolol 50 mg tablet 50 mg PO BID Primary Care Provider: Juan Aguiar Referrals: Juan Aguiar MD [Primary Care Provider, Family Practice] - 1 Week if not improving Activity Restrictions/Additional Instructions: Ice and elevate your wrist to decrease pain and swelling. Wrist splint on for comfort you may take it off is much as you would like. Follow-up with your doctor if is not improving. Most likely this is either tendinitis inflammation of the tendons or you sprained your wrist. Your x-rays look good. Print Language: Barbadian Disposition Disposition: Home, Self Care
--- NOTE | 2025-02-16 07:00 | RAD_ITS ---
PROCEDURE: WRIST MIN 3 VIEWS 02/16/2025 REASON FOR EXAM: ATRAUMATIC WRIST PAIN TECHNIQUE: Procedure Code: RADWR Modality: DX Procedure: WRIST MIN 3 VIEWS Laterality: COMPARISON: None FINDINGS: Bones: No acute fracture or dislocation demonstrated. Joints: Joint spaces are preserved. Soft tissues: Unremarkable. Other: RAD/Wrist min 3 Views IMPRESSION: NO ACUTE FRACTURE OR DISLOCATION. If acute hand or wrist trauma is suspected an d initial radiographs are negative or equivocal repeat radiographs in 10-14 days MRI without IV contrast or CT without IV contr ast is usually appropriate as the next imaging study. (ACR Appropriateness Criteria: Acute Hand and Wrist Trauma 2018) Reading Location: [place] [id number]
== END 2025-02-16 09:26 | disposition home or self-care (01) ==
PROVIDERS: Emergency Provider Emergency Medicine; PCP Family Medicine; Visit Provider Emergency Medicine
DX: M67.833 Other specified disorders of tendon, right wrist (principal); X50.3XXA Overexertion from repetitive movements, initial encounter; F17.210 Nicotine dependence, cigarettes, uncomplicated; F17.290 Nicotine dependence, other tobacco product, uncomplicated
CPT/HCPCS: 73110; 99283

== ENCOUNTER → 2025-03-15 | Outpatient (CLI) | payer BC, SELFPAY ==
[2025-03-15 14:22] LABS: Hematocrit 40.0 % (37-47); Hemoglobin 12.7 g/dL (12.0-15.0); Immature Granulocytes Count 0.030 X10^3/uL (0.0-0.0); Mean Corp Hgb Conc 31.8 g/dL (32-36); Mean Corpuscular Volume 94.1 fL (81-99); Mean Platelet Vol. 11.0 fl (6.2-12.0); NRBC Flagged by Analyzer 0 % (0-5); Platelet Count 254 K/mm3 (150-450); RBC Distribution Width CV 12.9 % (11.6-14.6); RBC Distribution Width SD 44.4 fl (35.1-43.9); Red Blood Count 4.25 M/mm3 (4.2-5.4); White Blood Count 8.8 K/mm3 (4.4-11.0)
[2025-03-15 14:56] LABS: Free T3 3.1 pg/mL (2.18-3.98)
[2025-03-15 15:57] LABS: AST(SGOT) 22 U/L (<=31); Alanine Aminotransfer ALT/SGPT 18 U/L (<=34); Albumin, Serum 4.4 g/dL (3.5-5.0); Alkaline Phosphatase 77 U/L (35-104); Anion Gap 14 (5-15); BUN 13 mg/dL (4-19); BUN/Creat Ratio 17.7 RATIO (10-20); Calcium,Total 9.4 mg/dL (7.6-11.0); Carbon Dioxide 20.8 mmol/L (21.0-32.0); Chloride 105 mmol/L (98-108); Globulin 2.9 g/dL (2.2-4.2); Glucose 88 mg/dL (70-99); Potassium 4.1 mmol/L (3.3-5.1)
== END | disposition home or self-care (01) ==
LOC: MFPLAB 09:35
PROVIDERS: Internal Medicine Endocrinology, Diabetes & Metabolism; PCP Family Medicine; Visit Provider Family Medicine
DX: E05.90 Thyrotoxicosis, unspecified without thyrotoxic crisis or storm (principal); R51.9 Headache, unspecified
CPT/HCPCS: 36415; 80053; 84439; 84443; 84481; 85025; 85652

== ENCOUNTER → 2025-04-05 | Outpatient (CLI) | payer BC, SELFPAY ==
--- NOTE | 2025-04-05 14:11 | US_ITS ---
PROCEDURE: THYROID 04/05/2025 REASON FOR EXAM: NODULE TECHNIQUE: Procedure Code: USTHY Modality: US Procedure: THYROID COMPARISON: None. FINDINGS: Right thyroid lobe size: 5.9 x 2.5 x 2.0 cm Left thyroid lobe size: 5.0 x 1.8 x 1.2 cm Isthmus: 0 point 4 cm Background parenchymal echotexture is homogeneous. Nodules: 1. Lobe: Right, Location: , Size: 3.0 x 3.1 x 1.6 cm, Stability: Not applicable Composition: Mixed cystic and solid (+1) Echogenicity: Hyper to Isoechoic (+1) Margin: Smooth (+0) Shape: Wider than tall (+0) Echogenic Foci: None (+0) TI-RADS: 2 US/Thyroid IMPRESSION: Dominant right thyroid mixed solid cystic lesion. TR 2. Fine-needle aspiration and/or follow-up ultrasound not required. RECOMMENDATION: TR 1 benign (0 points): No fine-needle aspirate or ultrasound follow-up require d. TR 2 not suspicious (1-2 points): No fine-needle aspirate or ultrasound follow up required. TR 3 mildly suspicious (3 points): 1.5 centimeter or greater requires ultrasoun d follow up at 1, 3 and 5 years. 2.5 centimeters or greater requires fine-needle aspirate. TR 4: Moderately suspicious (4-6 points): 1 centimeter greater requires ultraso und follow-up in 1, 2, 3 and 5 years. 1.5 centimeters or greater requires fine-needle aspirate. TR 5 highly suspicious (greater than or equal to 7 points,): 0.5 centimeters or greater requires annual follow up up to 5 years. 1.0 centimeters or greater requires fine-needle aspirate. Fine-needle aspirate no more than 2 nodules. Biopsy up to two highest TI-RADS s cores. Follow-up no more than 4 nodules with highest TI-RADS points score. Based on most suspicious nodule. Nodule size = largest diameter Only evaluate nodule if =>5 mm. Growth > 20% in 2 dimensions = worsening. Reading Location: [place] [id number]
== END | disposition home or self-care (01) ==
LOC: US 14:09
PROVIDERS: PCP Family Medicine; Referring Provider Family Medicine; Visit Provider Family Medicine
DX: E04.1 Nontoxic single thyroid nodule (principal)
CPT/HCPCS: 76536

== ENCOUNTER → 2025-04-19 | Outpatient (CLI) | payer BC, SELFPAY ==
--- NOTE | 2025-04-19 13:15 | MRI_ITS ---
PROCEDURE: BRAIN W/WO CONTRAST 04/19/2025 REASON FOR EXAM: WORST HEADACHE OF LIFE TECHNIQUE: Procedure Code: [id number] Modality: MR Procedure: BRAIN W/WO CONTRAST Multiplanar and multisequence images were obtained. CONTRAST: Clariscan VOLUME: 14 mL COMPARISON: None available. FINDINGS: No acute infarct or hemorrhage. The brain parenchyma is within normal limits. No abnormal intracranial enhancement. No extra-axial fluid collection. No significant mass effect or herniation of the brain. The ventricular system and sulci/fissures are within expected limits of size and configuration for the patient's stated age. The basal cisterns are patent. The intracranial large vessel arterial flow voids are maintained. The mastoid air cells clear. The paranasal sinuses are predominately clear. The orbits are unremarkable. The calvarial bone marrow signal is within normal limits. The visualized uppermost portion of the cervical spine is within normal limits. MRI/Brain W/WO Contrast IMPRESSION: No acute infarct, hemorrhage, significant mass effect, or enhancing intracrania l lesion. Reading Location: [id number]
== END | disposition home or self-care (01) ==
LOC: OPMRI 13:14
PROVIDERS: PCP Family Medicine; Referring Provider Family Medicine; Visit Provider Family Medicine
DX: R51.9 Headache, unspecified (principal)
CPT/HCPCS: 70553; A9575